=== PATIENT | female | born 1965 | race African-American/Black ===

== ENCOUNTER 2016-12-17 20:52 | Inpatient (IN) ==
[2016-12-17] MEDS ORDERED: FUROSEMIDE 100 MG/10 ML VIAL IV STA (21:24)
[2016-12-17] MEDS ORDERED: NITROGLYCERIN 2% OINT 1 INCH/GM PACK TOP STA (21:24)
--- NOTE | 2016-12-17 21:43 | XRay Report ---
Exam: XR chest 1V portable Date: 12/17/2016 9:24 PM Indication: Shortness of breath Comparison: 01/04/2016 Technical:AP semierect portable Findings: Mild cardiac prominence. External cardiac leads are present. A few reticular nodular densities are present that suggest granuloma changes left mid chest. Lateral marginal osteophytes are present. Impression: 1. Borderline cardiac enlargement 2. Granuloma changes 3. Degenerative spondylosis 4. No acute pathology present PROCEDURE INTERPRETED AT [facility] DEPARTMENT OF RADIOLOGY Final Report Signed by: Dr. Olivier Mcgowan
[2016-12-17 21:50] LABS: ABG Base Excess -4.6 MMOL/L (-2.5-2.5); ABG HCO3 20.6 MMOL/L (20-26); ABG Oxygen Saturation 96.3 % (95-100); ABG PH 7.366 (7.35-7.45); ABG PO2 87.5 MM HG (80-95); ABG TCO2 17.6 MMOL/L (23-27); Allen Test Positive; Pt O2 Delivery Device Room Air
[2016-12-17] MEDS ORDERED: KETOROLAC 30 MG/1 ML VIAL IV STA (22:02)
[2016-12-17] MEDS ORDERED: KETOROLAC 30 MG/1 ML VIAL ONE (22:04)
[2016-12-17] MEDS ORDERED: NITROGLYCERIN 2% OINT 1 INCH/GM PACK TOP ONE (22:04)
[2016-12-17] MEDS ORDERED: FUROSEMIDE 20 MG/2 ML VIAL ONE (22:04)
[2016-12-17 22:07] LABS: Basophils % 0.2 % (0.0-0.8); Eosinophils # 0.1 10*3/uL (0.0-0.87); Eosinophils % 1.6 % (0.00-10.9); Hematocrit 37.8 VOL% (35.7-47.0); Hemoglobin 12.9 GM/DL (12.0-16.0); Immature Granulocytes % 0.2 %; Immature Granulocytes Absolute 0.01 #; Lymphocytes # 1.4 10*3/uL (1.4-4.0); Lymphocytes % 33.5 % (21.3-54.2); Mean Corpuscular HGB Conc 34.1 GM/DL (32-36); Mean Corpuscular Hemoglobin 35 PG (27-34); Mean Corpuscular Volume 103.3 FL (87-102); Mean Platelet Volume 10.2 FL (9.6-12.0); Monocytes # 0.5 10*3/uL (0.11-0.8); Monocytes % 12.3 % (1.7-12.7); Neutrophils # 2.2 10*3/uL (1.4-7.4); Neutrophils % 52.2 % (38.7-73.9); Platelet Count 172 T/CUMM (130-400); Red Blood Count 3.66 MC/CUMM (3.8-5.5); Red Cell Distribution Width 12.6 % (9.3-17.3); White Blood Count 4.3 T/CUMM (4-12)
[2016-12-17 22:16] LABS: PT Patient Result 10.1 SECS
--- NOTE | 2016-12-17 22:31 | Emergency Department Note ---
ICisco Sierra, am scribing for, and in the presence of, Isael Higgins MD 21:46. IRonaldo Robert M, MD, personally performed the services described in this documentation, ascribed by Leila Peck in my presence, and it is both accurate and complete . Arrival - Arrival Chief Complaint: Shortness of Breath Stated Complaint: chest pain bad cough ED Nursing Triage Note: C/O Nonproductive cough, "fluid build up in my chest". Onset Yesterday. SOB with exertion/laying down. EKG performed at time of triage Mode of Arrival: Ambulatory Limitations: No Limitations Source: Patient Time Seen by Provider: 12/17/16 21:23 - History of Present Illness HPI Narrative: Pt is a 51 y/o female that came to the ED with c/o chest pain that began yesterday. Pt has associated sxs of cough with flem, body aches, and leg pains but denies leg swelling. Pt states the cough has been going on for about 3 days and she thinks sxs may be sinuses but the chest pain concerned her. Pt reports she thinks she might have fluid build up. Pt's PCP is Dr. Beth. No other complaints/pain in ED. Onset (ago): day(s) Consistency: constant Severity: mild Severity scale (1-10): 2 Quality: sharp Date of Last Menstrual Period: PM Allergies/Adverse Reactions: Allergies Allergy/AdvReac Type Severity Reaction Status Date / Time No Known Allergies Allergy Verified 12/17/16 21:13 Home Medications: Home Medications Medication Instructions Recorded Confirmed Type Citalopram [CeleXA] 20 mg PO DAILY 01/06/16 01/06/16 History HYDROcodone/ACETAMIN 10-325 [[place] 1 tablet PO Q8HR PRN 01/06/16 01/06/16 History 10-325] Pravastatin [Pravachol] 20 mg PO BEDTIME 01/06/16 01/06/16 History ALPRAZolam [Xanax] 0.25 mg PO Q8H PRN #60 tablet 01/07/16 Rx Albuterol Neb [Proventil Neb] 2.5 mg RESP [place] Q6H PRN #30 neb 01/07/16 Rx Amoxicillin/Clav Tab [Augmentin 875 mg PO BID #10 tablet 01/07/16 Rx Tab] Nebulizer [Aeroneb Go Nebulizer] 1 each [facility] DIRECTED #1 each 01/07/16 Rx Zolpidem Tartrate [Ambien] 10 mg PO BEDTIME PRN #30 tablet 01/07/16 Rx predniSONE TAB [PredniSONE] 40 mg PO DAILY #12 tablet 01/07/16 Rx Aspirin Chew Tab 81 mg PO DAILY #90 tablet 01/09/16 Rx Carvedilol [Coreg] 6.25 mg PO BID #60 tablet 01/09/16 Rx Spironolactone [Aldactone] 25 mg PO DAILY #30 tablet 01/09/16 Rx Valsartan 40 mg PO DAILY #30 tablet 01/09/16 Rx Review of System - Review of System 12 point system: reviewed and no additional remarkable complaints except as stated - Review of System Constitutional: Present: other (body aches). Absent: chills, fever Respiratory: Present: cough (cough with flem) Cardiovascular: Present: chest pain Gastrointestinal: Absent: abdominal pain, nausea, vomiting Musculoskeletal: Present: leg pain. Absent: arm pain, back pain, neck pain Skin: Absent: rash Neurological: Absent: headache Psychiatric: Absent: anxiety Medical,Surgical,& Family Hx - Medical History Cardio: History of: Hypertension Reproductive: History of: Breast Cancer - Social History Smoking Status: Smoker, status unknown Frequency of Alcohol Use: None Type of Drug Use: None Exam Vital Signs: Vital Signs Temperature 97.3 F L 12/17/16 21:43 Pulse Rate 92 H 12/17/16 21:43 Respiratory Rate 18 12/17/16 21:43 Blood Pressure 134/92 12/17/16 21:43 O2 Sat by Pulse Oximetry 94 L 12/17/16 21:13 - General General appearance: alert, in no apparent distress - Head Head exam: Present: atraumatic, normocephalic - Eye Eye exam: Present: PERRL, EOMI - ENT ENT exam: Present: mucous membranes moist. Absent: mucous membranes dry - Neck Neck exam: Present: full ROM. Absent: tenderness - Chest Chest inspection: Present: symmetric chest wall rise. Absent: tenderness - Respiratory Respiratory exam: Present: rales (rales in both bases), rhonchi - Cardiovascular Cardiovascular exam: Present: regular rate, normal rhythm, normal heart sounds - Abdominal Exam Abdominal exam: Present: soft. Absent: tenderness - Extremities Exam Extremities exam: Present: full ROM. Absent: tenderness - Back Exam Back exam: Present: full ROM. Absent: tenderness - Neurological Exam Neurological exam: Present: alert, oriented X3, CN II-XII intact. Absent: motor sensory deficit - Psychiatric Psychiatric exam: Present: normal affect, normal mood - Skin Skin exam: Present: warm, dry Course - Consultations Consultation #1: Dr. Ty Patel will evaluate and admit the patient. Time: 00:41 Results - Labs CBC & BMP: 12/17/16 21:30 12/17/16 21:30 Lab Results: I have reviewed the patients labs Labs: Lab Results WBC 4.3 T/CUMM (4-12) 12/17/16 21:30 RBC 3.66 MC/CUMM (3.8-5.5) L 12/17/16 21:30 Hgb 12.9 GM/DL (12.0-16.0) 12/17/16 21:30 Hct 37.8 VOL% (35.7-47.0) 12/17/16 21:30 MCV 103.3 FL (87-102) H 12/17/16 21:30 MCH 35 PG (27-34) H 12/17/16 21:30 MCHC 34.1 GM/DL (32-36) 12/17/16 21:30 RDW 12.6 % (9.3-17.3) 12/17/16 21:30 Plt Count 172 T/CUMM (130-400) 12/17/16 21:30 MPV 10.2 FL (9.6-12.0) 12/17/16 21:30 Neut % (Auto) 52.2 % (38.7-73.9) 12/17/16 21:30 Lymph % (Auto) 33.5 % (21.3-54.2) 12/17/16 21:30 [place] % (Auto) 12.3 % (1.7-12.7) 12/17/16 21:30 Eos % (Auto) 1.6 % (0.00-10.9) 12/17/16 21:30 Baso % (Auto) 0.2 % (0.0-0.8) 12/17/16 21:30 Neut # (Auto) 2.2 10*3/uL (1.4-7.4) 12/17/16 21:30 Lymph # (Auto) 1.4 10*3/uL (1.4-4.0) 12/17/16 21:30 Schuyler # (Auto) 0.5 10*3/uL (0.11-0.8) 12/17/16 21:30 Eos # (Auto) 0.1 10*3/uL (0.0-0.87) 12/17/16 21:30 Baso # (Auto) 0.0 10*3/uL (0.0-0.2) 12/17/16 21:30 Immature Gran % 0.2 % 12/17/16 21:30 Nucleated RBC % 0.0 /100WBC 12/17/16 21:30 Immature Gran # 0.01 # 12/17/16 21:30 Nucleated RBCs # 0.00 10*3/uL 12/17/16 21:30 INR 1.0 12/17/16 21:30 PT Patient/Control Mix 10.1 SECS 12/17/16 21:30 Sodium 139 MMOL/L (136-145) 12/17/16 21:30 Potassium 3.4 MMOL/L (3.5-5.1) L 12/17/16 21:30 Chloride 106 MMOL/L (98-107) 12/17/16 21:30 Carbon Dioxide 22 MMOL/L (21-32) 12/17/16 21:30 Anion Gap 14.4 MMOL/L (5.0-15.0) 12/17/16 21:30 BUN 8 MG/DL (7-18) 12/17/16 21:30 Creatinine 0.60 MG/DL (0.55-1.02) 12/17/16 21:30 GFR Calculation 128 ML/MIN 12/17/16:30 BUN/Creatinine Ratio 13.00 RATIO (6.00-20.00) 12/17/16 21: Glucose 90 MG/DL (74-106) 12/17/16 21:30 Calculated Osmolality 274.5 MOS/KG (273-304) 12/17/16 21:30 Calcium 8.7 MG/DL (8.5-10.1) 12/17/16 21:30 Magnesium 2.1 MG/DL (1.8-2.4) 12/17/16 21:30 Total Bilirubin 0.50 MG/DL (0.2-1.0) 12/17/16 21:30 AST 24 U/L (0-37) 12/17/16 21:30 ALT 27 U/L (13-56) 12/17/16 21:30 Alkaline Phosphatase 93 U/L (45-117) 12/17/16 21:30 Troponin I < 0.015 NG/ML (0.00-0.045) 12/17/16 21:30 B-Natriuretic Peptide 317 PG/ML (2-100) H 12/17/16 21:30 Total Protein 7.2 G/DL (6.4-8.3) 12/17/16 21: Albumin 3.8 G/DL (3.4-5.0) 12/17/16 21:30 Globulin 3.4 G/DL (2.3-3.5) 12/17/16 21:30 Albumin/Globulin Ratio 1.1 RATIO (1.1-2.2) 12/17/16 21:30 Urine Color Colorless (Yellow) 12/17/16 21:30 Urine Appearance Clear (Clear) 12/17/16 21:30 Urine pH 5.0 (4.5-8.0) 12/17/16 21:30 Ur Specific [place] 1.002 (1.001-1.035) 12/17/16 21:30 Urine Protein Negative MG/DL 12/17/16 21:30 Urine Glucose (UA) Negative mg/dL (Negative) 12/17/16 21:30 Urine Ketones Negative mg/dL (Negative) 12/17/16 21:30 Urine Blood Negative mg/dL (Negative) 12/17/16 21:30 Urine Nitrate Negative (Negative) 12/17/16 21:30 Urine Bilirubin Negative mg/dL (Negative) 12/17/16 21:30 Urine Urobilinogen < 2.0 EU/DL (0.2-1.0) H 12/17/16 21:30 Urine Leukocytes Negative Zuly/ul (Negative) 12/17/16 21:30 Urine WBC <1 /HPF (0-6) 12/17/16 21:30 Urine Mucus Occasional /LPF (Occasional) 12/17/16 21:30 Ur Culture Indicated? Not indicated 12/17/16 21:30 ABG pH 7.366 (7.35-7.45) 12/17/16 21:24 ABG pCO2 35.0 MM HG (35-48) 12/17/16 21:24 ABG pO2 87.5 MM HG (80-95) 12/17/16 21:24 ABG HCO3 20.6 MMOL/L (20-26) 12/17/16 21:24 ABG Total CO2 17.6 MMOL/L (23-27) L 12/17/16 21:24 ABG O2 Saturation 96.3 % (95-100) 12/17/16 21:24 ABG Base Excess -4.6 MMOL/L (-2.5-2.5) L 12/17/16 21:24 FiO2 21.00 PERCENT (0-100) 12/17/16 21:24 Digoxin 0.10 NG/ML (0.90-2.00) L 12/17/16 21:30 - EKG EKG results: interpreted by ERMD, WNL, sinus rhythm - Diagnostic Findings Procedure: Chest x-ray: report reviewed by me Disposition Clinical Impression: CHF (congestive heart failure), Breast cancer, Dyspnea on exertion Case discussed with: patient, patient's family Disposition: Still a Patient Condition: Stable Time of Disposition: 00:40
[2016-12-17 22:32] LABS: Alanine Aminotransferase 27 U/L (13-56); Albumin 3.8 G/DL (3.4-5.0); Alkaline Phosphatase 93 U/L (45-117); Aspartate Amino Transferase 24 U/L (0-37); Blood Urea Nitrogen 8 MG/DL (7-18); Calcium 8.7 MG/DL (8.5-10.1); Glucose 90 MG/DL (74-106); Magnesium 2.1 MG/DL (1.8-2.4); Osmolality,Calculated 274.5 MOS/KG (273-304); Potassium 3.4 MMOL/L (3.5-5.1); Sodium 139 MMOL/L (136-145); Total Protein 7.2 G/DL (6.4-8.3); Troponin I Only < 0.015 NG/ML (0.00-0.045)
[2016-12-17 23:09] LABS: Apearance,Urine CLEAR (Clear); Bilirubin,Urine Negative (Negative); Blood, Urine Negative (Negative); Glucose,Urine (UA) Negative (Negative); Ketones,Urine Negative (Negative); Mucus,Urine Occasional /LPF (Occasional); Nitrite,Urine Negative (Negative); Protein,Urine Negative; Urine Color Colorless (Yellow); Urine Specific Gravity 1.002 (1.001-1.035); Urine Urobilinogen < 2.0 EU/DL (0.2-1.0); WBC,Urine <1 /HPF (0-6)
[2016-12-18] MEDS ORDERED: ALPRAZolam 0.25 MG TABLET PO PRN (01:49)
[2016-12-18] MEDS ORDERED: ALBUTEROL 2.5 MG/3 ML NEB RESP TX PRN (01:49)
[2016-12-18] MEDS ORDERED: ACETAMINOPHEN 325 MG TABLET PO PRN (02:08)
[2016-12-18] MEDS ORDERED: BISACODYL 5 MG TABLET PO PRN (02:08)
[2016-12-18] MEDS ORDERED: MORPHINE 2 MG/1 ML SYRINGE IV PRN (02:08)
[2016-12-18] MEDS ORDERED: ONDANSETRON 4 MG/2 ML VIAL IV PRN (02:08)
--- NOTE | 2016-12-18 02:16 | Hospitalist History & Physical ---
Assessment and Plan - Time spent with patient Time spent discussing smoking cessation with patient: 3 to 10 minutes (1) Acute on chronic combined systolic and diastolic congestive heart failure Status: Acute Current Visit: Yes (2) Hypertension Status: Acute Current Visit: Yes (3) Smoker Status: Acute Current Visit: Yes (4) History of breast cancer Status: Acute Assessment and plan: Plan: Admit for IV diuresis, supportive care with duo nebs breathing treatment. EF is 25% Continue remainder of CHF medications May consider repeat chest x-ray in the next 24 hours Current Visit: Yes History of Present Illness Chief complaint: Worsening shortness of breath 3 days History of present illness: Ms. Soto is a 51 year old female with chronic systolic CHF, EF 25%, history of breast cancer status post left mastectomy, hypertension, smoker, who is here with progressively worsening shortness of breath starting Thursday. She denies fever or chills, she is coughing up some whitish phlegm occasionally. She denies chest pain except after a long coughing episode. She denies leg swelling. She reports compliance with her medications, during my exam blood pressure is slightly elevated 150s over 90s. Her symptoms are constant. Home Medications Medication Instructions Recorded Confirmed Type Citalopram [CeleXA] 20 mg PO DAILY 01/06/16 12/18/16 History HYDROcodone/ACETAMIN 10-325 [[place] 1 tablet PO Q8HR PRN 01/06/16 01/06/16 History 10-325] Pravastatin [Pravachol] 20 mg PO BEDTIME 01/06/16 01/06/16 History ALPRAZolam [Xanax] 0.25 mg PO Q8H PRN #60 tablet 01/07/16 Rx Albuterol Neb [Proventil Neb] 2.5 mg RESP [place] Q6H PRN #30 neb 01/07/16 Rx Amoxicillin/Clav Tab [Augmentin 875 mg PO BID #10 tablet 01/07/16 Rx Tab] Nebulizer [Aeroneb Go Nebulizer] 1 each [facility] [place] #1 each 01/07/16 Rx Zolpidem Tartrate [Ambien] 10 mg PO BEDTIME PRN #30 tablet 01/07/16 Rx predniSONE TAB [PredniSONE] 40 mg PO DAILY #12 tablet 01/07/16 Rx Aspirin Chew Tab 81 mg PO DAILY #90 tablet 01/09/16 Rx Carvedilol [Coreg] 6.25 mg PO BID #60 tablet 01/09/16 12/18/16 Rx Spironolactone [Aldactone] 25 mg PO DAILY #30 tablet 01/09/16 12/18/16 Rx Valsartan 40 mg PO DAILY #30 tablet 01/09/16 Rx Allergies Allergy/AdvReac Type Severity Reaction Status Date / Time No Known Allergies Allergy Verified 12/17/16 21:13 Medical,Surgical,& Family Hx - Medical History Cardio: History of: CHF (Chronic systolic and diastolic CHF, EF 25% December 2015) , Hypertension No history of: CAD Endocrine: No history of: Diabetes Mellitus (NIDDM) Respiratory: No history of: COPD Reproductive: History of: Breast Cancer (Status post left mastectomy) - Surgical History Reproductive Surgeries: Surgical HX of;: Breast Surgery - Family History Family History: Reports;: Family Hypertension - Social History Smoking Status: Current every day smoker Have you smoked in the last 12 months: Yes Time spent discussing smoking cessation with patient: 3 to 10 minutes Frequency of Alcohol Use: None Type of Drug Use: None Marital Status: Lives With:: Spouse Functional capacity: independent ambulation Review of systems: A 12 point review of systems is negative except as specified in the HPI Exam - Constitutional Vitals: Period Temp Pulse Resp BP Sys/[place] Pulse Ox Last 24 Hr 97.3 F-97.3 F 92-98 18-18 134-139/92-96 94 Exam: EXAM: CONSTITUTIONAL: non toxic, NAD HEENT: NC, AT, OP benign, NINA, EOMI CV: RRR no m/g/r RESP: Scant rales bilaterally GI: abd soft, NT, ND, +bowel sounds INTEGUMENTARY: no lesions or rash, prior left mastectomy EXTREMITIES: no c/c/e NEURO: no focal deficits PSYCH: unremarkable, A/O x3 Results - Labs CBC & BMP: 12/18/16 04:22 12/17/16 21:30 Lab Results: I have reviewed the past 24 hour labs - EKG EKG shows: sinus rhythm - Diagnostic Findings Procedure: Chest x-ray: image reviewed by me, report reviewed by me
[2016-12-18] MEDS ORDERED: cloNIDine 0.1 MG TABLET ONE (02:39)
[2016-12-18] MEDS ORDERED: cloNIDine 0.1 MG TABLET PO STA (02:43)
[2016-12-18] MEDS: ZALEPLON 5 MG CAPSULE PO PRN ×2 (03:52→22:17)
[2016-12-18 04:49] LABS: Eosinophils # 0.1 10*3/uL (0.0-0.87); Eosinophils % 2.2 % (0.00-10.9); Hematocrit 36.6 VOL% (35.7-47.0); Hemoglobin 12.6 GM/DL (12.0-16.0); Immature Granulocytes % 0.3 %; Immature Granulocytes Absolute 0.01 #; Lymphocytes # 0.8 10*3/uL (1.4-4.0); Lymphocytes % 25.5 % (21.3-54.2); Mean Corpuscular HGB Conc 34.4 GM/DL (32-36); Mean Corpuscular Hemoglobin 35 PG (27-34); Mean Corpuscular Volume 102.2 FL (87-102); Mean Platelet Volume 10.4 FL (9.6-12.0); Monocytes # 0.4 10*3/uL (0.11-0.8); Monocytes % 11.2 % (1.7-12.7); Neutrophils % 60.8 % (38.7-73.9); Platelet Count 168 T/CUMM (130-400); Red Blood Count 3.58 MC/CUMM (3.8-5.5); Red Cell Distribution Width 12.6 % (9.3-17.3); White Blood Count 3.2 T/CUMM (4-12)
[2016-12-18 05:23] LABS: Albumin 3.6 G/DL (3.4-5.0); Bilirubin,Total 0.8 MG/DL (0.2-1.0); Calcium 8.5 MG/DL (8.5-10.1); Osmolality,Calculated 276.5 MOS/KG (273-304); Potassium 3.7 MMOL/L (3.5-5.1); Total Protein 6.7 G/DL (6.4-8.3)
--- NOTE | 2016-12-18 07:11 | XRay Report ---
History short of breath Comparison 12/17/2016 The heart is mildly enlarged No congestive failure or confluent infiltrates seen Impression: Mild cardiomegaly without acute infiltrate PROCEDURE INTERPRETED AT [facility] DEPARTMENT OF RADIOLOGY Final Report Signed by: Dr. Maria Isabel De Dios
--- NOTE | 2016-12-18 08:32 | EKG Report ---
Stationary ECG Study [facility] ER Test Date: 12/17/2016 9:18:39 PM Pat Name: LENKA GAMEZ Department: Room: 285 Gender: F Teletypist: Melissa : 1965 Requested by: Isael Higgins Order Number: [id number] Reading MD: EFFIE BHATTI Intervals [place] Rate: 93 P: 71 NE: 167 QRS: 25 QRSD: 94 T: 3 QT: 370 QTc: 421 Interpretive Statements SINUS RHYTHM POSSIBLE LEFT ATRIAL ENLARGEMENT SEPTAL INFARCT, AGE UNDETERMINED MODERATE ST DEPRESSION Electronically Signed On 12-22-16 08:17:03 CDT by EFFIE BHATTI [email or web address]
[2016-12-18] MEDS: ENOXAPARIN 40 MG/0.4 ML SYRINGE SUBCUT SCH (09:18)
[2016-12-18] MEDS: FUROSEMIDE 40 MG/4 ML VIAL IV SCH ×2 (09:18→15:34)
[2016-12-18] MEDS: PANTOPRAZOLE 40 MG TABLET PO SCH (09:19)
[2016-12-18] MEDS: CITALOPRAM 20 MG TABLET PO SCH (09:19)
[2016-12-18] MEDS: VALSARTAN 80 MG TABLET PO SCH (09:19)
[2016-12-18] MEDS: CARVEDILOL 6.25 MG TABLET PO SCH ×2 (09:19→22:17)
[2016-12-18] MEDS: predniSONE 20 MG TABLET PO SCH (09:19)
[2016-12-18] MEDS: AMOXICILLIN/CLAV 875 MG TABLET PO SCH ×2 (09:19→22:17)
[2016-12-18] MEDS: SPIRONOLACTONE 25 MG TABLET PO SCH (09:19)
[2016-12-18] MEDS: ASPIRIN CHEW 81 MG TABLET PO SCH (09:19)
[2016-12-18] MEDS: guaiFENesin 200 MG/10 ML UDCUP PO PRN (15:33)
[2016-12-18] MEDS ORDERED: PRAVASTATIN 20 MG TABLET PO SCH (21:00)
[2016-12-19] MEDS: guaiFENesin 200 MG/10 ML UDCUP PO PRN ×2 (00:51→09:00)
[2016-12-19 08:11] VITALS: BP 120/79
--- NOTE | 2016-12-19 08:33 | Discharge Summary ---
Hospital Course - Hospital Course Hospital Course: Ms. Soto is a 51 year old female with chronic systolic CHF, EF 25%, history of breast cancer status post left mastectomy, hypertension, smoker, who presented with progressively worsening shortness of breath for 4 days. She denies fever or chills, she was coughing up some whitish phlegm occasionally. She denied chest pain except after a long coughing episode. She denies leg swelling. She reports compliance with her medications, blood pressure is slightly elevated 150s over 90s. \ She was admitted to the hospitalist service with acute on chronic combined systolic and diastolic congestive heart failure. She was started on IV lasix. CXR did not show an acute process. Patient has done well, with no complications during hospitalization. She has now reached maximum benefit of inpatient stay and will be discharged home. - Time spent with patient Time with patient DS: Less than 30 minutes Diagnosis - Discharge Diagnosis (1) Acute on chronic combined systolic and diastolic congestive heart failure Status: Resolved (2) Hypertension Status: Chronic Discharge Plan - Discharge Data Condition at Discharge: Stable Discharge Diet: heart healthy Activity: resume usual activities as tolerated Hygiene: no restrictions Weight Bearing at Discharge: weight bear as tolerated Driving: no restrictions Contact your physician if you experience:: fever over 101, Shortness of breath - Discharge Medications Continue Pravastatin [Pravachol] 20 mg PO BEDTIME Citalopram [CeleXA] 20 mg PO DAILY HYDROcodone/ACETAMIN 10-325 [[place] 10-325] 1 tablet PO Q8HR PRN PRN Reason: Pain Moderate To Severe (4-10) ALPRAZolam [Xanax] 0.25 mg PO Q8H PRN #60 tablet PRN Reason: Anxiety Albuterol Neb [Proventil Neb] 2.5 mg RESP [place] Q6H PRN #30 neb PRN Reason: Shortness Of Breath/Wheezing Amoxicillin/Clav Tab [Augmentin Tab] 875 mg PO BID #10 tablet Nebulizer [Aeroneb Go Nebulizer] 1 each [facility] DIRECTED #1 each predniSONE TAB [PredniSONE] 40 mg PO DAILY #12 tablet Aspirin Chew Tab 81 mg PO DAILY #90 tablet Carvedilol [Coreg] 6.25 mg PO BID #60 tablet Spironolactone [Aldactone] 25 mg PO DAILY #30 tablet Valsartan 40 mg PO DAILY #30 tablet Zolpidem Tartrate [Ambien] 10 mg PO BEDTIME PRN #30 tablet PRN Reason: Insomnia - Follow Up or Referral Follow Up: Eliu Pascal CFNP [Advanced Practice Nurse] - 1 Month (hospital f/u) - Forms/Instructions Exam - Constitutional Vitals: Period Temp Pulse Resp BP Sys/[place] Pulse Ox Last 24 Hr 97.5 F-98.3 F 73-95 17-20 98-120/64-79 92-98 General appearance: normal weight - Head Head exam: Present: normocephalic, atraumatic - Eye Eye exam: Present: EOMI Pupils: Present: NINA - ENT ENT exam: Present: normal exam - Neck Neck exam: Present: normal inspection - Respiratory Respiratory exam: Present: clear to auscultation bilaterally. Absent: rhonchi, wheezes - Cardiovascular Cardiovascular exam: Present: regular rate and rhythm - GI/Abdominal GI/Abdominal exam: Present: normal bowel sounds, soft. Absent: tenderness, rebound - Extremities Exam Extremities exam: Present: normal inspection - Back Exam Back exam: Present: normal inspection - Neurological Exam Neurological exam: Present: alert, oriented X3 - Psychiatric Psychiatric exam: Present: normal affect, normal mood - Skin Skin exam: Present: warm, intact DS: Provider Date of admission: 12/18/16 02:08 Primary care physician: . No PCP Attending physician on admission: Hilario Chakraborty MD Discharging clinician: Hilario Chakraborty MD
[2016-12-19] MEDS: AMOXICILLIN/CLAV 875 MG TABLET PO SCH (09:00)
[2016-12-19] MEDS: CITALOPRAM 20 MG TABLET PO SCH (09:01)
[2016-12-19] MEDS: ASPIRIN CHEW 81 MG TABLET PO SCH (09:01)
[2016-12-19] MEDS: SPIRONOLACTONE 25 MG TABLET PO SCH (09:01)
[2016-12-19] MEDS: VALSARTAN 80 MG TABLET PO SCH (09:01)
[2016-12-19] MEDS: CARVEDILOL 6.25 MG TABLET PO SCH (09:01)
[2016-12-19] MEDS: predniSONE 20 MG TABLET PO SCH (09:01)
[2016-12-19] MEDS: ENOXAPARIN 40 MG/0.4 ML SYRINGE SUBCUT SCH (09:02)
[2016-12-19] MEDS: PANTOPRAZOLE 40 MG TABLET PO SCH (09:02)
[2016-12-19] MEDS: FUROSEMIDE 40 MG/4 ML VIAL IV SCH (09:02)
== END 2016-12-19 10:47 | disposition home or self-care (01) | DRG 293 ==
LOC: N.ED 20:52 → N.EDINP 12-18 02:08 → N.TELEN 12-18 02:36
PROVIDERS: ADMIT Internal Medicine; ATTEND Internal Medicine

== ENCOUNTER 2017-12-14 09:23 | Inpatient (IN) ==
[2017-12-14] MEDS ORDERED: FUROSEMIDE 100 MG/10 ML VIAL IV STA (10:31)
[2017-12-14] MEDS ORDERED: ALBUTEROL/IPRATROPIUM 3 ML NEB RESP TX STA (10:31)
[2017-12-14] MEDS ORDERED: methylPREDNISolone SOD SUC 125 MG/2 ML VIAL IV STA (10:31)
[2017-12-14] MEDS ORDERED: ONDANSETRON 4 MG/2 ML VIAL IV STA (10:31)
[2017-12-14] MEDS ORDERED: MORPHINE 2 MG/1 ML SYRINGE IV STA (10:31)
[2017-12-14 10:44] LABS: Basophils % 0.2 % (0.0-0.8); Eosinophils # 0.1 10*3/uL (0.0-0.87); Eosinophils % 0.9 % (0.00-10.9); Hematocrit 36.9 VOL% (35.7-47.0); Hemoglobin 12.7 GM/DL (12.0-16.0); Immature Granulocytes % 0.5 %; Immature Granulocytes Absolute 0.03 #; Lymphocytes # 1.4 10*3/uL (1.4-4.0); Lymphocytes % 23.6 % (21.3-54.2); Mean Corpuscular HGB Conc 34.4 GM/DL (32-36); Mean Corpuscular Hemoglobin 35 PG (27-34); Mean Corpuscular Volume 100.8 FL (87-102); Mean Platelet Volume 10.9 FL (9.6-12.0); Monocytes # 0.5 10*3/uL (0.11-0.8); Neutrophils # 3.8 10*3/uL (1.4-7.4); Neutrophils % 65.8 % (38.7-73.9); Platelet Count 228 T/CUMM (130-400); Red Blood Count 3.66 MC/CUMM (3.8-5.5); Red Cell Distribution Width 14.1 % (9.3-17.3); White Blood Count 5.8 T/CUMM (4-12)
[2017-12-14] MEDS ORDERED: FUROSEMIDE 40 MG/4 ML VIAL ONE (10:47)
[2017-12-14] MEDS ORDERED: ONDANSETRON 4 MG/2 ML VIAL ONE (10:48)
[2017-12-14] MEDS ORDERED: FUROSEMIDE 20 MG/2 ML VIAL ONE (10:48)
[2017-12-14] MEDS ORDERED: methylPREDNISolone SOD SUC 125 MG/2 ML VIAL ONE (10:48)
[2017-12-14] MEDS ORDERED: MORPHINE 4 MG/1 ML VIAL ONE (10:48)
[2017-12-14 10:51] LABS: INR 1.1; PT Patient Result 11.1 SECS
[2017-12-14 11:00] LABS: Alanine Aminotransferase 37 U/L (13-56); Albumin 3.5 G/DL (3.4-5.0); Alkaline Phosphatase 104 U/L (45-117); Aspartate Amino Transferase 39 U/L (0-37); Blood Urea Nitrogen 9 MG/DL (7-18); Calcium 8.6 MG/DL (8.5-10.1); Glucose 102 MG/DL (74-106); Osmolality,Calculated 275.5 MOS/KG (273-304); Potassium 4.6 MMOL/L (3.5-5.1); Sodium 139 MMOL/L (136-145); Total Protein 7.5 G/DL (6.4-8.3); Troponin I Only < 0.015 NG/ML (0.00-0.045)
[2017-12-14] MEDS ORDERED: guaiFENesin/DM ER 600-30 MG TABLET PO PRN (12:25)
[2017-12-14] MEDS ORDERED: ONDANSETRON 4 MG/2 ML VIAL IV PRN (12:25)
[2017-12-14] MEDS ORDERED: MORPHINE 4 MG/1 ML VIAL IV PRN (12:25)
[2017-12-14] MEDS ORDERED: diphenhydrAMINE CAP 25 MG CAPSULE PO PRN (12:25)
[2017-12-14] MEDS ORDERED: ACETAMINOPHEN 325 MG TABLET PO PRN (12:25)
[2017-12-14] MEDS ORDERED: NICOTINE 21 MG/24 HR PATCH TRANSDERM PRN (12:25)
[2017-12-14] MEDS ORDERED: DOCUSATE SODIUM 100 MG CAPSULE PO PRN (12:25)
[2017-12-14] MEDS ORDERED: ALPRAZolam 0.25 MG TABLET PO PRN (12:32)
[2017-12-14] MEDS ORDERED: ALBUTEROL 2.5 MG/3 ML NEB RESP TX PRN (12:32)
[2017-12-14] MEDS: LOSARTAN 25 MG TABLET PO SCH (13:26)
[2017-12-14] MEDS: PREGABALIN 75 MG CAPSULE PO SCH ×2 (13:26→20:52)
[2017-12-14] MEDS: ENOXAPARIN 40 MG/0.4 ML SYRINGE SUBCUT SCH (13:26)
[2017-12-14] MEDS: METOPROLOL TARTRATE 25 MG TABLET PO SCH (13:26)
[2017-12-14] MEDS: PANTOPRAZOLE 40 MG TABLET PO SCH (13:26)
[2017-12-14] MEDS: ASPIRIN CHEW 81 MG TABLET PO SCH (13:27)
[2017-12-14] MEDS: SERTRALINE 50 MG TABLET PO SCH (13:27)
[2017-12-14] MEDS: ALBUTEROL/IPRATROPIUM 3 ML NEB RESP TX SCH ×2 (13:50→19:14)
[2017-12-14] MEDS: FUROSEMIDE 40 MG/4 ML VIAL IV SCH (15:59)
[2017-12-14] MEDS ORDERED: AMITRIPTYLINE 50 MG TABLET PO SCH (21:00)
[2017-12-14 21:21] LABS: Apearance,Urine CLEAR (Clear); Bilirubin,Urine Negative (Negative); Blood, Urine Negative (Negative); Glucose,Urine (UA) Negative (Negative); Hyaline Casts,Urine 1 /LPF (0-3); Ketones,Urine Negative (Negative); Nitrite,Urine Negative (Negative); Protein,Urine Negative; RBC,Urine <1 /HPF (0-4); Urine Color Straw (Yellow); Urine Specific Gravity 1.005 (1.001-1.035); Urine Urobilinogen < 2.0 EU/DL (0.2-1.0); WBC,Urine <1 /HPF (0-6)
[2017-12-15] MEDS: ALBUTEROL/IPRATROPIUM 3 ML NEB RESP TX SCH ×3 (01:24→13:56)
[2017-12-15 01:40] LABS: Barbiturates Screen,Urine Negative (Negative); Benzodiazepines Screen,Urine Negative (Negative); Cannabinoid Screen,Urine Negative (Negative); Opiate Screen,Urine Positive (Negative); Phencyclidine Screen,Urine Negative (Negative)
[2017-12-15 04:58] LABS: Basophils % 0.1 % (0.0-0.8); Hematocrit 38.5 VOL% (35.7-47.0); Hemoglobin 13.4 GM/DL (12.0-16.0); Immature Granulocytes % 0.3 %; Immature Granulocytes Absolute 0.03 #; Lymphocytes % 8.9 % (21.3-54.2); Mean Corpuscular HGB Conc 34.8 GM/DL (32-36); Mean Corpuscular Hemoglobin 34 PG (27-34); Mean Corpuscular Volume 98.5 FL (87-102); Mean Platelet Volume 10.2 FL (9.6-12.0); Monocytes # 0.8 10*3/uL (0.11-0.8); Monocytes % 7.1 % (1.7-12.7); Neutrophils # 9.2 10*3/uL (1.4-7.4); Neutrophils % 83.6 % (38.7-73.9); Platelet Count 223 T/CUMM (130-400); Red Blood Count 3.91 MC/CUMM (3.8-5.5); Red Cell Distribution Width 13.7 % (9.3-17.3)
[2017-12-15 05:38] LABS: Calcium 8.4 MG/DL (8.5-10.1); Osmolality,Calculated 285.3 MOS/KG (273-304); Potassium 3.6 MMOL/L (3.5-5.1); Risk Ratio 4.62; Thyroid Stimulating Hormone 0.263 uIU/ml (0.358-3.74)
[2017-12-15] MEDS: PANTOPRAZOLE 40 MG TABLET PO SCH (09:34)
[2017-12-15] MEDS: PREGABALIN 75 MG CAPSULE PO SCH (09:34)
[2017-12-15] MEDS: FUROSEMIDE 40 MG/4 ML VIAL IV SCH (09:34)
[2017-12-15] MEDS: LOSARTAN 25 MG TABLET PO SCH (09:35)
[2017-12-15] MEDS: METOPROLOL TARTRATE 25 MG TABLET PO SCH (09:35)
[2017-12-15] MEDS: ASPIRIN CHEW 81 MG TABLET PO SCH (09:35)
[2017-12-15] MEDS: SERTRALINE 50 MG TABLET PO SCH (09:35)
[2017-12-15] MEDS: ENOXAPARIN 40 MG/0.4 ML SYRINGE SUBCUT SCH (12:09)
[2017-12-15 12:33] VITALS: BP 101/67
[2017-12-16] MEDS ORDERED: FUROSEMIDE 40 MG TABLET PO SCH (09:00)
== END 2017-12-15 15:36 | disposition home or self-care (01) | DRG 292 ==
LOC: N.ED 09:23 → SUATTDRO 11:32 → N.EDINP 11:32 → N.TELEN 13:00
PROVIDERS: ADMIT Internal Medicine; ATTEND Internal Medicine

== ENCOUNTER 2018-09-03 22:23 | Inpatient (IN) ==
[2018-09-03] MEDS ORDERED: FUROSEMIDE 100 MG/10 ML VIAL IV STA (23:22)
[2018-09-03] MEDS ORDERED: ALBUTEROL/IPRATROPIUM 3 ML NEB RESP TX STA (23:22)
[2018-09-04 00:03] LABS: Basophils % 0.4 % (0.0-0.8); Eosinophils # 0.1 10*3/uL (0.0-0.87); Eosinophils % 1.4 % (0.00-10.9); Hematocrit 38.4 VOL% (35.7-47.0); Hemoglobin 12.7 GM/DL (12.0-16.0); Immature Granulocytes % 0.4 %; Immature Granulocytes Absolute 0.02 #; Lymphocytes # 1.9 10*3/uL (1.4-4.0); Lymphocytes % 33.2 % (21.3-54.2); Mean Corpuscular HGB Conc 33.1 GM/DL (32-36); Mean Corpuscular Hemoglobin 28 PG (27-34); Mean Corpuscular Volume 85.7 FL (87-102); Mean Platelet Volume 10.1 FL (9.6-12.0); Monocytes # 0.6 10*3/uL (0.11-0.8); Monocytes % 10.5 % (1.7-12.7); NRBC # 0.03 10*3/uL; Neutrophils # 3.1 10*3/uL (1.4-7.4); Neutrophils % 54.1 % (38.7-73.9); Platelet Count 257 T/CUMM (130-400); Red Blood Count 4.48 MC/CUMM (3.8-5.5); Red Cell Distribution Width 20.3 % (9.3-17.3); White Blood Count 5.7 T/CUMM (4-12)
[2018-09-04 00:18] LABS: INR 1.3; PT Patient Result 13.9 SECS; Partial Thromboplastin Time 24.4 SECS (0-40)
[2018-09-04 00:24] LABS: Alanine Aminotransferase 44 U/L (13-56); Albumin 3.3 G/DL (3.4-5.0); Alkaline Phosphatase 167 U/L (45-117); Aspartate Amino Transferase 62 U/L (0-37); Blood Urea Nitrogen 26 MG/DL (7-18); Calcium 8.9 MG/DL (8.5-10.1); Glucose 95 MG/DL (74-106); Osmolality,Calculated 268.5 MOS/KG (273-304); Potassium 4.3 MMOL/L (3.5-5.1); Sodium 132 MMOL/L (136-145); Total Protein 8.3 G/DL (6.4-8.3); Troponin I < 0.015 NG/ML (0.00-0.045)
[2018-09-04 00:26] LABS: Band Neutrophils 1 % (0-10); Lymphocytes 26 % (20-55); Segmented Neutrophils 63 % (50-85); Total Cells Counted 100
[2018-09-04 00:27] LABS: Anisocytosis 1+; Hypochromasia 1+; Target Cells 1+
[2018-09-04 00:28] LABS: Platelet Estimate Adequate
[2018-09-04 01:08] LABS: Apearance,Urine CLEAR (Clear); Bilirubin,Urine Negative (Negative); Blood, Urine Negative (Negative); Glucose,Urine (UA) Negative (Negative); Hyaline Casts,Urine 8 /LPF (0-3); Ketones,Urine Negative (Negative); Mucus,Urine Occasional /LPF (Occasional); Nitrite,Urine Negative (Negative); Protein,Urine 30 MG/DL; RBC,Urine <1 /HPF (0-4); Squamous Epithelial Cell,Urine Occasional /HPF (0-10); Urine Color Yellow (Yellow); Urine Urobilinogen < 2.0 EU/DL (0.2-1.0); WBC,Urine 2 /HPF (0-6)
[2018-09-04 01:16] LABS: Barbiturates Screen,Urine Negative (Negative); Benzodiazepines Screen,Urine Negative (Negative); Cannabinoid Screen,Urine Negative (Negative); Opiate Screen,Urine Positive (Negative); Phencyclidine Screen,Urine Negative (Negative)
[2018-09-04] MEDS ORDERED: ONDANSETRON 4 MG/2 ML VIAL IV PRN (01:58)
[2018-09-04] MEDS ORDERED: DOCUSATE SODIUM 100 MG CAPSULE PO PRN (01:58)
[2018-09-04 06:54] LABS: Basophils % 0.2 % (0.0-0.8); Eosinophils # 0.1 10*3/uL (0.0-0.87); Eosinophils % 1.5 % (0.00-10.9); Hematocrit 33.7 VOL% (35.7-47.0); Immature Granulocytes % 0.2 %; Immature Granulocytes Absolute 0.01 #; Lymphocytes # 1.5 10*3/uL (1.4-4.0); Lymphocytes % 37.6 % (21.3-54.2); Mean Corpuscular HGB Conc 32.6 GM/DL (32-36); Mean Corpuscular Hemoglobin 28 PG (27-34); Mean Corpuscular Volume 85.8 FL (87-102); Mean Platelet Volume 10.7 FL (9.6-12.0); Monocytes # 0.5 10*3/uL (0.11-0.8); Neutrophils % 48.5 % (38.7-73.9); Platelet Count 259 T/CUMM (130-400); Red Blood Count 3.93 MC/CUMM (3.8-5.5); White Blood Count 4.1 T/CUMM (4-12)
[2018-09-04 07:12] LABS: Calcium 8.6 MG/DL (8.5-10.1); Osmolality,Calculated 275.8 MOS/KG (273-304); Potassium 2.8 MMOL/L (3.5-5.1)
[2018-09-04] MEDS: FUROSEMIDE 40 MG/4 ML VIAL IV SCH ×2 (08:43→16:09)
[2018-09-04] MEDS: ENOXAPARIN 40 MG/0.4 ML SYRINGE SUBCUT SCH (08:43)
[2018-09-04] MEDS ORDERED: POTASSIUM CHLORIDE 20 MEQ TABLET PO ONE ×2 (09:00→16:00)
[2018-09-04] MEDS ORDERED: POTASSIUM CHLORIDE 20 MEQ TABLET PO STA (09:01)
[2018-09-04] MEDS: SPIRONOLACTONE 25 MG TABLET PO SCH (13:26)
[2018-09-04] MEDS: POTASSIUM CHLORIDE 20 MEQ TABLET PO SCH (20:37)
[2018-09-04] MEDS: SACUBITRIL/VALSARTAN 49-51 MG TABLET PO SCH (20:38)
[2018-09-05 05:13] LABS: Basophils % 0.3 % (0.0-0.8); Eosinophils # 0.1 10*3/uL (0.0-0.87); Eosinophils % 1.4 % (0.00-10.9); Hematocrit 35.9 VOL% (35.7-47.0); Hemoglobin 11.6 GM/DL (12.0-16.0); Immature Granulocytes % 0.2 %; Immature Granulocytes Absolute 0.01 #; Lymphocytes # 2.2 10*3/uL (1.4-4.0); Lymphocytes % 37.8 % (21.3-54.2); Mean Corpuscular HGB Conc 32.3 GM/DL (32-36); Mean Corpuscular Hemoglobin 28 PG (27-34); Mean Corpuscular Volume 85.9 FL (87-102); Mean Platelet Volume 10.2 FL (9.6-12.0); Monocytes # 0.7 10*3/uL (0.11-0.8); Monocytes % 11.7 % (1.7-12.7); Neutrophils # 2.9 10*3/uL (1.4-7.4); Neutrophils % 48.6 % (38.7-73.9); Platelet Count 272 T/CUMM (130-400); Red Blood Count 4.18 MC/CUMM (3.8-5.5); Red Cell Distribution Width 20.2 % (9.3-17.3); White Blood Count 5.9 T/CUMM (4-12)
[2018-09-05 05:43] LABS: Calcium 8.3 MG/DL (8.5-10.1); Osmolality,Calculated 280.5 MOS/KG (273-304); Potassium 4.2 MMOL/L (3.5-5.1)
[2018-09-05] MEDS: SACUBITRIL/VALSARTAN 49-51 MG TABLET PO SCH ×2 (08:18→21:39)
[2018-09-05] MEDS: SPIRONOLACTONE 25 MG TABLET PO SCH (08:19)
[2018-09-05] MEDS: POTASSIUM CHLORIDE 20 MEQ TABLET PO SCH ×2 (08:19→21:39)
[2018-09-05] MEDS: FUROSEMIDE 40 MG/4 ML VIAL IV SCH ×2 (08:20→16:39)
[2018-09-05] MEDS: ENOXAPARIN 40 MG/0.4 ML SYRINGE SUBCUT SCH (08:24)
[2018-09-05] MEDS: CARVEDILOL 3.125 MG TABLET PO SCH ×2 (12:20→16:39)
[2018-09-06] MEDS: SACUBITRIL/VALSARTAN 49-51 MG TABLET PO SCH ×2 (08:47→21:25)
[2018-09-06] MEDS: POTASSIUM CHLORIDE 20 MEQ TABLET PO SCH ×2 (08:49→21:25)
[2018-09-06] MEDS: SPIRONOLACTONE 25 MG TABLET PO SCH (08:50)
[2018-09-06] MEDS: FUROSEMIDE 40 MG/4 ML VIAL IV SCH (08:50)
[2018-09-06] MEDS: CARVEDILOL 3.125 MG TABLET PO SCH ×2 (08:50→16:41)
[2018-09-06] MEDS: ENOXAPARIN 40 MG/0.4 ML SYRINGE SUBCUT SCH (08:51)
[2018-09-06] MEDS: BENZONATATE 100 MG CAPSULE PO SCH ×2 (10:22→21:25)
[2018-09-06] MEDS: FUROSEMIDE 40 MG TABLET PO SCH (15:06)
[2018-09-07 05:23] LABS: Basophils % 0.6 % (0.0-0.8); Eosinophils # 0.1 10*3/uL (0.0-0.87); Eosinophils % 1.5 % (0.00-10.9); Hematocrit 38.7 VOL% (35.7-47.0); Hemoglobin 12.2 GM/DL (12.0-16.0); Immature Granulocytes % 0.4 %; Immature Granulocytes Absolute 0.02 #; Lymphocytes # 2.4 10*3/uL (1.4-4.0); Lymphocytes % 46.2 % (21.3-54.2); Mean Corpuscular HGB Conc 31.5 GM/DL (32-36); Mean Corpuscular Hemoglobin 28 PG (27-34); Mean Corpuscular Volume 87.2 FL (87-102); Mean Platelet Volume 10.5 FL (9.6-12.0); Monocytes # 0.6 10*3/uL (0.11-0.8); Monocytes % 10.6 % (1.7-12.7); NRBC # 0.03 10*3/uL; Neutrophils # 2.1 10*3/uL (1.4-7.4); Neutrophils % 40.7 % (38.7-73.9); Platelet Count 315 T/CUMM (130-400); Red Blood Count 4.44 MC/CUMM (3.8-5.5); Red Cell Distribution Width 20.9 % (9.3-17.3); White Blood Count 5.3 T/CUMM (4-12)
[2018-09-07 06:04] LABS: Osmolality,Calculated 272.1 MOS/KG (273-304); Potassium 5.6 MMOL/L (3.5-5.1)
[2018-09-07 08:58] VITALS: BP 129/96
[2018-09-07] MEDS ORDERED: PANTOPRAZOLE 40 MG TABLET PO SCH (09:00)
[2018-09-07] MEDS: FUROSEMIDE 40 MG TABLET PO SCH (09:23)
[2018-09-07] MEDS: SACUBITRIL/VALSARTAN 49-51 MG TABLET PO SCH (09:23)
[2018-09-07] MEDS: POTASSIUM CHLORIDE 20 MEQ TABLET PO SCH (09:26)
[2018-09-07] MEDS: SPIRONOLACTONE 25 MG TABLET PO SCH (09:26)
[2018-09-07] MEDS: BENZONATATE 100 MG CAPSULE PO SCH (09:26)
[2018-09-07] MEDS: CARVEDILOL 3.125 MG TABLET PO SCH (09:26)
[2018-09-07] MEDS: ENOXAPARIN 40 MG/0.4 ML SYRINGE SUBCUT SCH (09:27)
== END 2018-09-07 11:44 | disposition home or self-care (01) | DRG 292 ==
LOC: N.ED 22:23 → N.EDINP 22:23 → SUATTDRO 09-04 01:54 → N.2E 09-04 02:20
PROVIDERS: ADMIT Internal Medicine; ATTEND Internal Medicine Infectious Disease

== ENCOUNTER 2018-10-06 19:01 | Inpatient (IN) ==
[2018-10-06] MEDS ORDERED: CLINDAMYCIN INJ 900 MG in PREMIX 1 EACH IV STA (19:34)
[2018-10-06] MEDS ORDERED: FUROSEMIDE 100 MG/10 ML VIAL IV STA (19:34)
[2018-10-06] MEDS ORDERED: ALBUTEROL/IPRATROPIUM 3 ML NEB RESP TX STA (19:34)
[2018-10-06] MEDS ORDERED: ONDANSETRON 4 MG/2 ML VIAL IV STA (19:34)
[2018-10-06] MEDS ORDERED: FUROSEMIDE 40 MG/4 ML VIAL ONE (19:43)
[2018-10-06 20:04] LABS: Basophils % 0.2 % (0.0-0.8); Eosinophils # 0.1 10*3/uL (0.0-0.87); Eosinophils % 1.7 % (0.00-10.9); Hematocrit 40.3 VOL% (35.7-47.0); Hemoglobin 13.1 GM/DL (12.0-16.0); Immature Granulocytes % 0.6 %; Immature Granulocytes Absolute 0.03 #; Lymphocytes # 1.7 10*3/uL (1.4-4.0); Mean Corpuscular HGB Conc 32.5 GM/DL (32-36); Mean Corpuscular Hemoglobin 28 PG (27-34); Mean Corpuscular Volume 86.5 FL (87-102); Mean Platelet Volume 9.5 FL (9.6-12.0); Monocytes # 0.5 10*3/uL (0.11-0.8); Monocytes % 9.7 % (1.7-12.7); Neutrophils # 2.9 10*3/uL (1.4-7.4); Neutrophils % 54.8 % (38.7-73.9); Platelet Count 272 T/CUMM (130-400); Red Blood Count 4.66 MC/CUMM (3.8-5.5); Red Cell Distribution Width 22.9 % (9.3-17.3); White Blood Count 5.3 T/CUMM (4-12)
[2018-10-06 20:17] LABS: INR 1.1; PT Patient Result 11.7 SECS; Partial Thromboplastin Time 26.4 SECS (0-40)
[2018-10-06 20:43] LABS: Alanine Aminotransferase 30 U/L (13-56); Albumin 2.9 G/DL (3.4-5.0); Alkaline Phosphatase 189 U/L (45-117); Aspartate Amino Transferase 38 U/L (0-37); Blood Urea Nitrogen 11 MG/DL (7-18); Calcium 8.6 MG/DL (8.5-10.1); Glucose 90 MG/DL (74-106); Potassium 3.3 MMOL/L (3.5-5.1); Sodium 136 MMOL/L (136-145); Troponin I < 0.015 NG/ML (0.00-0.045)
[2018-10-06] MEDS ORDERED: POTASSIUM BICARB EFFERVESCENT 25 MEQ TABLET PO ONE (20:46)
[2018-10-06 20:59] LABS: Apearance,Urine CLEAR (Clear); Bacteria,Urine Occasional /HPF (Few); Bilirubin,Urine Negative (Negative); Blood, Urine Negative (Negative); Glucose,Urine (UA) Negative (Negative); Ketones,Urine Negative (Negative); Nitrite,Urine Negative (Negative); Protein,Urine Negative; RBC,Urine 2 /HPF (0-4); Urine Color Straw (Yellow); Urine Specific Gravity 1.003 (1.001-1.035); Urine Urobilinogen < 2.0 EU/DL (0.2-1.0); WBC,Urine <1 /HPF (0-6)
[2018-10-06 20:59] LABS: Target Cells Few
[2018-10-06 21:00] LABS: Hypochromasia Slight; Platelet Estimate Adequate
[2018-10-06 21:01] LABS: Ovalocytes Few
[2018-10-06 21:04] LABS: Barbiturates Screen,Urine Negative (Negative); Benzodiazepines Screen,Urine Negative (Negative); Cannabinoid Screen,Urine Negative (Negative); Opiate Screen,Urine Positive (Negative); Phencyclidine Screen,Urine Negative (Negative)
[2018-10-06] MEDS ORDERED: BISACODYL 5 MG TABLET PO PRN (22:09)
[2018-10-06] MEDS ORDERED: diphenhydrAMINE CAP 25 MG CAPSULE PO PRN (22:09)
[2018-10-06] MEDS ORDERED: hydrALAZINE 20 MG/1 ML VIAL IV PRN (22:09)
[2018-10-06] MEDS ORDERED: MORPHINE 4 MG/1 ML VIAL IV PRN (22:09)
[2018-10-06] MEDS ORDERED: NICOTINE 21 MG/24 HR PATCH TRANSDERM PRN (22:09)
[2018-10-06] MEDS ORDERED: MAGNESIUM SULF RIDER 4 GM in PREMIX 1 EACH IV PRN (22:09)
[2018-10-06] MEDS ORDERED: ACETAMINOPHEN 325 MG TABLET PO PRN (22:09)
[2018-10-06] MEDS ORDERED: guaiFENesin/DM ER 600-30 MG TABLET PO PRN (22:09)
[2018-10-06] MEDS ORDERED: ONDANSETRON 4 MG/2 ML VIAL IV PRN (22:09)
[2018-10-06] MEDS ORDERED: MAGNESIUM SULF RIDER 2 GM in PREMIX 1 EACH IV PRN (22:09)
[2018-10-06] MEDS ORDERED: guaiFENesin/CODEINE 5 ML LIQUID PO PRN (23:04)
[2018-10-06 23:08] LABS: Risk Ratio 3.96; VLDL CHOLESTEROL 42.6 MG/DL
[2018-10-06] MEDS: ALBUTEROL/IPRATROPIUM 3 ML NEB RESP TX SCH (23:32)
[2018-10-06 23:57] LABS: Albumin 3.1 G/DL (3.4-5.0); Bilirubin,Direct 0.51 MG/DL (0.0-0.20); Bilirubin,Indirect 0.3 MG/DL (0.0-1.0); Bilirubin,Total 0.8 MG/DL (0.2-1.0)
[2018-10-07] MEDS: POTASSIUM CHLORIDE 20 MEQ TABLET PO PRN ×3 (00:45→06:24)
[2018-10-07 03:17] LABS: Hepatitis A Ab IgM Quant 0.14 Index; Hepatitis A Ab IgM Result Negative (Negative); Hepatitis B Core IgM Quant 0.13 Index; Hepatitis B Core IgM Result Negative (Negative); Hepatitis B Surface Ag Quant < 0.10 Index; Hepatitis B Surface Ag Result Negative (Negative); Hepatitis C Virus Ab Quant 0.08 Index; Hepatitis C Virus Ab Result Negative (Negative)
[2018-10-07] MEDS: CLINDAMYCIN INJ 600 MG in PREMIX 1 EACH IV SCH ×2 (03:41→11:44)
[2018-10-07] MEDS: ALBUTEROL/IPRATROPIUM 3 ML NEB RESP TX SCH ×6 (04:17→23:53)
[2018-10-07 05:56] LABS: Albumin 2.7 G/DL (3.4-5.0); Bilirubin,Total 1.1 MG/DL (0.2-1.0); Calcium 8.6 MG/DL (8.5-10.1); Osmolality,Calculated 269.1 MOS/KG (273-304); Potassium 4.2 MMOL/L (3.5-5.1); Total Protein 7.2 G/DL (6.4-8.3)
[2018-10-07] MEDS: PANTOPRAZOLE 40 MG TABLET PO SCH (10:00)
[2018-10-07] MEDS: FUROSEMIDE 40 MG/4 ML VIAL IV SCH ×2 (10:00→16:13)
[2018-10-07] MEDS ORDERED: ALPRAZolam 0.25 MG TABLET PO PRN (15:08)
[2018-10-07] MEDS ORDERED: ZALEPLON 5 MG CAPSULE PO PRN (15:08)
[2018-10-07] MEDS ORDERED: BENZONATATE 100 MG CAPSULE PO PRN (15:08)
[2018-10-07] MEDS ORDERED: GABAPENTIN 300 MG CAPSULE PO PRN (15:08)
[2018-10-07] MEDS: CARVEDILOL 3.125 MG TABLET PO SCH (16:12)
[2018-10-07] MEDS: SKIN HEALING OINT (AQUAPHOR) 50 GM TUBE TOP SCH (16:12)
[2018-10-07] MEDS: CLOTRIMAZOLE/BETAMETHASONE CREAM 15 GM TUBE TOP SCH ×2 (16:12→20:39)
[2018-10-07] MEDS: SPIRONOLACTONE 25 MG TABLET PO SCH (16:12)
[2018-10-07] MEDS ORDERED: SACUBITRIL/VALSARTAN 49-51 MG TABLET PO SCH (21:00)
[2018-10-08] MEDS: ALBUTEROL/IPRATROPIUM 3 ML NEB RESP TX SCH ×5 (03:05→19:40)
[2018-10-08 04:55] LABS: Basophils % 0.2 % (0.0-0.8); Eosinophils % 2.1 % (0.00-10.9); Hematocrit 36.5 VOL% (35.7-47.0); Hemoglobin 11.7 GM/DL (12.0-16.0); Immature Granulocytes % 0.2 %; Lymphocytes % 41.1 % (21.3-54.2); Mean Corpuscular HGB Conc 32.1 GM/DL (32-36); Mean Corpuscular Hemoglobin 28 PG (27-34); Mean Corpuscular Volume 87.7 FL (87-102); Mean Platelet Volume 9.3 FL (9.6-12.0); Neutrophils % 42.4 % (38.7-73.9); Platelet Count 231 T/CUMM (130-400); Red Blood Count 4.16 MC/CUMM (3.8-5.5); Red Cell Distribution Width 22.3 % (9.3-17.3); White Blood Count 4.7 T/CUMM (4-12)
[2018-10-08 04:56] LABS: Eosinophils # 0.1 10*3/uL (0.0-0.87); Immature Granulocytes Absolute 0.01 #; Lymphocytes # 1.9 10*3/uL (1.4-4.0); Monocytes # 0.7 10*3/uL (0.11-0.8); NRBC # 0.02 10*3/uL
[2018-10-08 05:16] LABS: Calcium 8.4 MG/DL (8.5-10.1); Osmolality,Calculated 272.8 MOS/KG (273-304)
[2018-10-08 05:22] LABS: Hypochromasia 1+; Platelet Estimate Adequate
[2018-10-08] MEDS: CARVEDILOL 3.125 MG TABLET PO SCH ×2 (09:02→17:20)
[2018-10-08] MEDS: SERTRALINE 50 MG TABLET PO SCH (09:02)
[2018-10-08] MEDS: FUROSEMIDE 40 MG/4 ML VIAL IV SCH ×2 (09:02→17:20)
[2018-10-08] MEDS: PANTOPRAZOLE 40 MG TABLET PO SCH (09:02)
[2018-10-08] MEDS: CLOTRIMAZOLE/BETAMETHASONE CREAM 15 GM TUBE TOP SCH ×2 (09:02→21:08)
[2018-10-08] MEDS: ASPIRIN CHEW 81 MG TABLET PO SCH (09:02)
[2018-10-08] MEDS: SPIRONOLACTONE 25 MG TABLET PO SCH (09:02)
[2018-10-08] MEDS: SKIN HEALING OINT (AQUAPHOR) 50 GM TUBE TOP SCH (09:03)
[2018-10-08] MEDS ORDERED: cefTRIAXone 1,000 MG in SYRINGE 1 EACH IV SCH (11:00)
[2018-10-08] MEDS: SACUBITRIL/VALSARTAN 49-51 MG TABLET PO SCH ×2 (12:06→20:46)
[2018-10-08] MEDS: ENOXAPARIN 40 MG/0.4 ML SYRINGE SUBCUT SCH (12:08)
[2018-10-08] MEDS ORDERED: VANCOMYCIN INJ 1,500 MG in SODIUM CHLORIDE 0.9% 500 ML IV ONE (13:00)
[2018-10-08] MEDS ORDERED: cefTRIAXone 1,000 MG in SYRINGE 1 EACH IV ONE (13:30)
[2018-10-09] MEDS: ALBUTEROL/IPRATROPIUM 3 ML NEB RESP TX SCH ×4 (00:10→12:01)
[2018-10-09] MEDS ORDERED: VANCOMYCIN INJ 1,000 MG in SODIUM CHLORIDE 0.9% 250 ML IV SCH (01:00)
[2018-10-09 05:46] LABS: Basophils % 0.4 % (0.0-0.8); Eosinophils # 0.2 10*3/uL (0.0-0.87); Eosinophils % 3.3 % (0.00-10.9); Hematocrit 38.6 VOL% (35.7-47.0); Hemoglobin 12.3 GM/DL (12.0-16.0); Immature Granulocytes % 0.2 %; Immature Granulocytes Absolute 0.01 #; Lymphocytes # 1.5 10*3/uL (1.4-4.0); Lymphocytes % 31.4 % (21.3-54.2); Mean Corpuscular HGB Conc 31.9 GM/DL (32-36); Mean Corpuscular Hemoglobin 28 PG (27-34); Mean Corpuscular Volume 87.5 FL (87-102); Mean Platelet Volume 9.6 FL (9.6-12.0); Monocytes # 0.9 10*3/uL (0.11-0.8); Monocytes % 17.4 % (1.7-12.7); Neutrophils # 2.3 10*3/uL (1.4-7.4); Neutrophils % 47.3 % (38.7-73.9); Platelet Count 256 T/CUMM (130-400); Red Blood Count 4.41 MC/CUMM (3.8-5.5); Red Cell Distribution Width 22.5 % (9.3-17.3); White Blood Count 4.9 T/CUMM (4-12)
[2018-10-09 06:03] LABS: Calcium 8.9 MG/DL (8.5-10.1); Osmolality,Calculated 276.7 MOS/KG (273-304); Potassium 3.7 MMOL/L (3.5-5.1)
[2018-10-09 06:25] LABS: Band Neutrophils 2 % (0-10); Eosinophils 1 % (0-10); Lymphocytes 32 % (20-55); Platelet Estimate Normal; Segmented Neutrophils 57 % (50-85); Total Cells Counted 100
[2018-10-09] MEDS: SERTRALINE 50 MG TABLET PO SCH (09:57)
[2018-10-09] MEDS: ASPIRIN CHEW 81 MG TABLET PO SCH (09:58)
[2018-10-09] MEDS: SPIRONOLACTONE 25 MG TABLET PO SCH (09:58)
[2018-10-09] MEDS: CARVEDILOL 3.125 MG TABLET PO SCH (09:58)
[2018-10-09] MEDS: PANTOPRAZOLE 40 MG TABLET PO SCH (09:58)
[2018-10-09] MEDS: SACUBITRIL/VALSARTAN 49-51 MG TABLET PO SCH (09:58)
[2018-10-09] MEDS: ENOXAPARIN 40 MG/0.4 ML SYRINGE SUBCUT SCH (09:59)
[2018-10-09] MEDS: FUROSEMIDE 40 MG/4 ML VIAL IV SCH (09:59)
[2018-10-09] MEDS: CLOTRIMAZOLE/BETAMETHASONE CREAM 15 GM TUBE TOP SCH (10:16)
[2018-10-09] MEDS: SKIN HEALING OINT (AQUAPHOR) 50 GM TUBE TOP SCH (10:16)
[2018-10-09] MEDS ORDERED: cefTRIAXone 2,000 MG in SYRINGE 1 EACH IV SCH (12:00)
[2018-10-09 12:11] VITALS: BP 103/81
[2018-10-09] MEDS ORDERED: ZALEPLON 5 MG CAPSULE PO SCH (21:00)
== END 2018-10-09 12:30 | disposition home or self-care (01) | DRG 292 ==
LOC: N.ED 19:01 → N.EDINP 22:09 → SUPCPDRO 22:09 → N.4E 23:50
PROVIDERS: ADMIT Internal Medicine; ATTEND Internal Medicine

== ENCOUNTER 2018-10-23 12:16 | Observation (INO) ==
[2018-10-23] MEDS ORDERED: FUROSEMIDE 100 MG/10 ML VIAL IV STA (12:39)
[2018-10-23 13:28] LABS: Basophils % 0.1 % (0.0-0.8); Eosinophils # 0.1 10*3/uL (0.0-0.87); Eosinophils % 0.7 % (0.00-10.9); Hematocrit 40.5 VOL% (35.7-47.0); Hemoglobin 13.1 GM/DL (12.0-16.0); Immature Granulocytes % 0.4 %; Immature Granulocytes Absolute 0.03 #; Lymphocytes # 1.8 10*3/uL (1.4-4.0); Lymphocytes % 24.7 % (21.3-54.2); Mean Corpuscular HGB Conc 32.3 GM/DL (32-36); Mean Corpuscular Hemoglobin 29 PG (27-34); Mean Corpuscular Volume 90.8 FL (87-102); Mean Platelet Volume 9.9 FL (9.6-12.0); Monocytes % 13.1 % (1.7-12.7); NRBC # 0.03 10*3/uL; Neutrophils # 4.5 10*3/uL (1.4-7.4); Platelet Count 183 T/CUMM (130-400); Red Blood Count 4.46 MC/CUMM (3.8-5.5); Red Cell Distribution Width 22.6 % (9.3-17.3); White Blood Count 7.4 T/CUMM (4-12)
[2018-10-23 13:49] LABS: Albumin 3.3 G/DL (3.4-5.0); Bilirubin,Total 1.5 MG/DL (0.2-1.0); Calcium 8.6 MG/DL (8.5-10.1); Osmolality,Calculated 260.7 MOS/KG (273-304); Total Protein 8.4 G/DL (6.4-8.3)
[2018-10-23 13:52] LABS: Potassium 6.3 MMOL/L (3.5-5.1)
[2018-10-23] MEDS ORDERED: ALBUTEROL 2.5 MG/3 ML NEB RESP TX STA (14:15)
[2018-10-23 14:23] LABS: Apearance,Urine CLEAR (Clear); Bilirubin,Urine Negative (Negative); Blood, Urine Negative (Negative); Glucose,Urine (UA) Negative (Negative); Ketones,Urine Negative (Negative); Mucus,Urine Occasional /LPF (Occasional); Nitrite,Urine Negative (Negative); Protein,Urine 30 MG/DL; Squamous Epithelial Cell,Urine Occasional /HPF (0-10); Urine Color Straw (Yellow); Urine Specific Gravity 1.005 (1.001-1.035); Urine Urobilinogen < 2.0 EU/DL (0.2-1.0); WBC,Urine <1 /HPF (0-6)
[2018-10-23 14:33] LABS: Barbiturates Screen,Urine Negative (Negative); Benzodiazepines Screen,Urine Negative (Negative); Cannabinoid Screen,Urine Negative (Negative); Opiate Screen,Urine Positive (Negative); Phencyclidine Screen,Urine Negative (Negative)
[2018-10-23] MEDS ORDERED: ZALEPLON 5 MG CAPSULE PO PRN (16:04)
[2018-10-23] MEDS ORDERED: ALBUTEROL 2.5 MG/3 ML NEB RESP TX PRN (16:04)
[2018-10-23] MEDS ORDERED: GABAPENTIN 300 MG CAPSULE PO PRN (16:04)
[2018-10-23] MEDS ORDERED: ONDANSETRON 4 MG/2 ML VIAL IV PRN (16:19)
[2018-10-23] MEDS ORDERED: MAGNESIUM SULF RIDER 2 GM in PREMIX 1 EACH IV PRN (16:21)
[2018-10-23] MEDS ORDERED: MAGNESIUM SULF RIDER 4 GM in PREMIX 1 EACH IV PRN (16:21)
[2018-10-23] MEDS ORDERED: chlordiazePOXIDE 10 MG CAPSULE PO PRN (16:24)
[2018-10-23] MEDS: BENZONATATE 100 MG CAPSULE PO PRN (17:04)
[2018-10-23] MEDS: guaiFENesin/DM ER 600-30 MG TABLET PO PRN (17:05)
[2018-10-23] MEDS ORDERED: INFLUENZA VIRUS VACCINE 0.5 ML SYRINGE IM ONE (17:05)
[2018-10-23] MEDS ORDERED: PNEUMOCOCCAL VACCINE (13 VALENT) 0.5 ML SYRINGE IM ONE (17:05)
[2018-10-23] MEDS: NICOTINE 14 MG/24 HR PATCH TRANSDERM SCH (17:22)
[2018-10-23] MEDS: CARVEDILOL 3.125 MG TABLET PO SCH (17:22)
[2018-10-23] MEDS: ALBUTEROL/IPRATROPIUM 3 ML NEB RESP TX SCH (19:09)
[2018-10-23] MEDS: SACUBITRIL/VALSARTAN 49-51 MG TABLET PO SCH (21:31)
[2018-10-23] MEDS: CLOTRIMAZOLE/BETAMETHASONE CREAM 15 GM TUBE TOP SCH (21:33)
[2018-10-24] MEDS: ALBUTEROL/IPRATROPIUM 3 ML NEB RESP TX SCH ×2 (00:56→07:20)
[2018-10-24 05:13] LABS: Basophils % 0.2 % (0.0-0.8); Eosinophils # 0.1 10*3/uL (0.0-0.87); Eosinophils % 2.4 % (0.00-10.9); Hematocrit 34.3 VOL% (35.7-47.0); Hemoglobin 11.3 GM/DL (12.0-16.0); Immature Granulocytes % 0.3 %; Immature Granulocytes Absolute 0.02 #; Lymphocytes # 0.9 10*3/uL (1.4-4.0); Mean Corpuscular HGB Conc 32.9 GM/DL (32-36); Mean Corpuscular Hemoglobin 29 PG (27-34); Mean Corpuscular Volume 87.9 FL (87-102); Mean Platelet Volume 9.9 FL (9.6-12.0); Monocytes # 0.8 10*3/uL (0.11-0.8); Monocytes % 12.8 % (1.7-12.7); Neutrophils # 4.1 10*3/uL (1.4-7.4); Neutrophils % 69.3 % (38.7-73.9); Platelet Count 165 T/CUMM (130-400); Red Cell Distribution Width 21.6 % (9.3-17.3); White Blood Count 5.9 T/CUMM (4-12)
[2018-10-24 05:22] LABS: Calcium 8.3 MG/DL (8.5-10.1); Osmolality,Calculated 270.8 MOS/KG (273-304); Potassium 3.2 MMOL/L (3.5-5.1)
[2018-10-24] MEDS ORDERED: POTASSIUM CHLORIDE RIDER 10 MEQ in PREMIX 1 EACH IV PRN (05:34)
[2018-10-24] MEDS: POTASSIUM CHLORIDE 20 MEQ TABLET PO PRN ×2 (06:01→09:27)
[2018-10-24] MEDS ORDERED: MAGNESIUM SULF RIDER 4 GM in PREMIX 1 EACH IV PRN (07:23)
[2018-10-24] MEDS ORDERED: MAGNESIUM SULF RIDER 2 GM in PREMIX 1 EACH IV PRN (07:23)
[2018-10-24] MEDS ORDERED: FUROSEMIDE 40 MG/4 ML VIAL IV SCH (08:00)
[2018-10-24 08:14] VITALS: BP 100/64
[2018-10-24] MEDS ORDERED: THIAMINE 100 MG TABLET PO SCH (09:00)
[2018-10-24] MEDS ORDERED: POTASSIUM CHLORIDE 20 MEQ TABLET PO SCH (09:00)
[2018-10-24] MEDS ORDERED: FOLIC ACID 1 MG TABLET PO SCH (09:00)
[2018-10-24] MEDS ORDERED: SERTRALINE 50 MG TABLET PO SCH (09:00)
[2018-10-24] MEDS ORDERED: PANTOPRAZOLE 40 MG TABLET PO SCH (09:00)
[2018-10-24] MEDS ORDERED: SPIRONOLACTONE 25 MG TABLET PO SCH (09:00)
[2018-10-24] MEDS ORDERED: ASPIRIN CHEW 81 MG TABLET PO SCH (09:00)
[2018-10-24] MEDS ORDERED: MULTIVITAMIN (BEROCCA) TABLET PO SCH (09:00)
[2018-10-24] MEDS: SACUBITRIL/VALSARTAN 49-51 MG TABLET PO SCH (09:26)
[2018-10-24] MEDS: guaiFENesin/DM ER 600-30 MG TABLET PO PRN (09:27)
[2018-10-24] MEDS: CARVEDILOL 3.125 MG TABLET PO SCH (09:27)
[2018-10-24] MEDS: BENZONATATE 100 MG CAPSULE PO PRN (09:28)
[2018-10-24] MEDS: NICOTINE 14 MG/24 HR PATCH TRANSDERM SCH (09:29)
[2018-10-24] MEDS: CLOTRIMAZOLE/BETAMETHASONE CREAM 15 GM TUBE TOP SCH (09:32)
[2018-10-24] MEDS ORDERED: ACETAMINOPHEN 500 MG TABLET PO PRN (09:38)
== END 2018-10-24 10:31 | disposition home or self-care (01) ==
LOC: N.ED 12:16 → N.EDINP 15:12 → INTOOBSV 15:12 → N.EDINP 16:40 → N.TELES 16:44
PROVIDERS: ADMIT Internal Medicine Cardiovascular Disease; ATTEND Internal Medicine Cardiovascular Disease

== ENCOUNTER 2020-02-09 04:47 | Inpatient (IN) ==
[2020-02-09] MEDS ORDERED: ALUM/MAG/SIMETH/LIDO VISC 1:1 30 ML BOTTLE PO STA (05:02)
[2020-02-09] MEDS ORDERED: ONDANSETRON 4 MG/2 ML VIAL IV STA ×2 (05:02→07:19)
[2020-02-09] MEDS ORDERED: MORPHINE 4 MG/1 ML VIAL IV STA (05:02)
[2020-02-09 05:20] LABS: Basophils % 0.1 % (0.0-0.8); Hematocrit 44.5 VOL% (35.7-47.0); Hemoglobin 14.9 GM/DL (12.0-16.0); Immature Granulocytes % 0.5 %; Immature Granulocytes Absolute 0.05 #; Lymphocytes # 0.9 10*3/uL (1.4-4.0); Lymphocytes % 8.8 % (21.3-54.2); Mean Corpuscular HGB Conc 33.5 GM/DL (32-36); Mean Corpuscular Volume 102.5 FL (87-102); Mean Platelet Volume 9.9 FL (9.6-12.0); Monocytes % 6.7 % (1.7-12.7); Neutrophils % 83.9 % (38.7-73.9); Platelet Count 188 T/CUMM (130-400); Red Blood Count 4.34 MC/CUMM (3.8-5.5); Red Cell Distribution Width 15.5 % (9.3-17.3); White Blood Count 10.6 T/CUMM (4-12)
[2020-02-09 05:58] LABS: Albumin 3.7 G/DL (3.4-5.0); Bilirubin,Total 1.7 MG/DL (0.2-1.0); Calcium 9.7 MG/DL (8.5-10.1); Osmolality,Calculated 271.1 MOS/KG (273-304); Total Protein 8.9 G/DL (6.4-8.3)
[2020-02-09] MEDS ORDERED: PANTOPRAZOLE 40 MG VIAL IV STA (05:58)
[2020-02-09 06:00] LABS: Apearance,Urine CLEAR (Clear); Bilirubin,Urine Negative (Negative); Blood, Urine Negative (Negative); Glucose,Urine (UA) Negative (Negative); Ketones,Urine Negative (Negative); Nitrite,Urine Negative (Negative); Protein,Urine 100 MG/DL; RBC,Urine 1 /HPF (0-4); Urine Color Yellow (Yellow); Urine Specific Gravity 1.033 (1.001-1.035); WBC,Urine <1 /HPF (0-6)
[2020-02-09] MEDS ORDERED: AMPICILLIN/SULBACTAM 3,000 MG in SODIUM CHLORIDE 0.9% 100 ML IV STA (07:01)
[2020-02-09] MEDS ORDERED: HYDROmorphone 2 MG/1 ML VIAL IV STA (07:19)
[2020-02-09] MEDS ORDERED: ACETAMINOPHEN 325 MG TABLET PO PRN ×2 (09:00→09:11)
[2020-02-09] MEDS ORDERED: BISACODYL 5 MG TABLET PO PRN (09:11)
[2020-02-09] MEDS ORDERED: ALBUTEROL/IPRATROPIUM 3 ML NEB RESP TX PRN (09:11)
[2020-02-09] MEDS ORDERED: PIPERACILLIN/TAZOBACTAM 3,375 MG VIAL IV ONE (10:43)
[2020-02-09] MEDS ORDERED: SODIUM CHLORIDE 0.9% 100 ML IV ONE (10:43)
[2020-02-09] MEDS: PIPERACILLIN/TAZOBACTAM 3,375 MG in SODIUM CHLORIDE 0.9% 100 ML IV SCH ×2 (10:56→17:31)
[2020-02-09] MEDS: DEXTROSE 5% LACTATED RINGERS 1,000 ML IV SCH ×3 (10:56→23:15)
[2020-02-09] MEDS: PANTOPRAZOLE 40 MG TABLET PO SCH (10:56)
[2020-02-09] MEDS ORDERED: INDOMETHACIN SUPP 50 MG SUPP RECTAL ONE (12:42)
[2020-02-09] MEDS: HYDROmorphone 2 MG/1 ML VIAL IV PRN ×2 (16:17→20:26)
[2020-02-09] MEDS: ONDANSETRON 4 MG/2 ML VIAL IV PRN (20:25)
[2020-02-10] MEDS: PIPERACILLIN/TAZOBACTAM 3,375 MG in SODIUM CHLORIDE 0.9% 100 ML IV SCH ×3 (01:23→17:42)
[2020-02-10 04:57] LABS: Basophils % 0.1 % (0.0-0.8); Eosinophils % 0.1 % (0.00-10.9); Hematocrit 40.1 VOL% (35.7-47.0); Hemoglobin 13.5 GM/DL (12.0-16.0); Immature Granulocytes % 0.5 %; Immature Granulocytes Absolute 0.05 #; Lymphocytes # 1.3 10*3/uL (1.4-4.0); Lymphocytes % 12.8 % (21.3-54.2); Mean Corpuscular HGB Conc 33.7 GM/DL (32-36); Mean Corpuscular Volume 102.8 FL (87-102); Mean Platelet Volume 10.5 FL (9.6-12.0); NRBC # 0.02 10*3/uL; Neutrophils % 77.5 % (38.7-73.9); Platelet Count 142 T/CUMM (130-400); Red Cell Distribution Width 15.2 % (9.3-17.3); White Blood Count 10.1 T/CUMM (4-12)
[2020-02-10] MEDS: ONDANSETRON 4 MG/2 ML VIAL IV PRN ×2 (05:28→18:41)
[2020-02-10] MEDS: HYDROmorphone 2 MG/1 ML VIAL IV PRN ×3 (05:29→23:07)
[2020-02-10 05:31] LABS: Bilirubin,Total 2.4 MG/DL (0.2-1.0); Calcium 8.9 MG/DL (8.5-10.1); Osmolality,Calculated 270.1 MOS/KG (273-304); Total Protein 7.6 G/DL (6.4-8.3)
[2020-02-10 06:16] LABS: INR 1.2; PT Patient Result 12.9 SECS (9.8-11.9); Partial Thromboplastin Time 28.7 SECS (23.9-33.8)
[2020-02-10] MEDS ORDERED: INDOMETHACIN SUPP 50 MG SUPP RECTAL ONE (06:33)
[2020-02-10] MEDS ORDERED: fentaNYL 100 MCG/2 ML VIAL ONE (08:13)
[2020-02-10] MEDS ORDERED: GLYCOPYRROLATE 0.4 MG/2 ML VIAL ONE (09:00)
[2020-02-10] MEDS ORDERED: LIDOCAINE 2% 5 ML VIAL ONE (09:00)
[2020-02-10] MEDS ORDERED: ONDANSETRON 4 MG/2 ML VIAL ONE (09:00)
[2020-02-10] MEDS ORDERED: propofoL 200 MG/20 ML VIAL IV ONE (09:00)
[2020-02-10] MEDS ORDERED: ROCURONIUM 100 MG/10 ML VIAL IV ONE (09:00)
[2020-02-10] MEDS ORDERED: NEOSTIGMINE 10 MG/10 ML VIAL ONE (09:00)
[2020-02-10] MEDS ORDERED: SUGAMMADEX 200 MG/2 ML VIAL IV ONE (09:25)
[2020-02-10] MEDS: PANTOPRAZOLE 40 MG TABLET PO SCH (10:20)
[2020-02-10] MEDS: DEXTROSE 5% LACTATED RINGERS 1,000 ML IV SCH ×2 (10:20→17:42)
[2020-02-11] MEDS: DEXTROSE 5% LACTATED RINGERS 1,000 ML IV SCH ×3 (00:29→18:22)
[2020-02-11] MEDS: PIPERACILLIN/TAZOBACTAM 3,375 MG in SODIUM CHLORIDE 0.9% 100 ML IV SCH ×3 (01:01→17:42)
[2020-02-11] MEDS: HYDROmorphone 2 MG/1 ML VIAL IV PRN ×3 (06:25→21:51)
[2020-02-11] MEDS: ONDANSETRON 4 MG/2 ML VIAL IV PRN ×2 (06:26→17:40)
[2020-02-11] MEDS: PANTOPRAZOLE 40 MG VIAL IV SCH ×2 (09:58→21:49)
[2020-02-11] MEDS: SUCRALFATE 1 GM/10 ML UDCUP PO SCH ×3 (11:03→21:49)
[2020-02-12] MEDS: PIPERACILLIN/TAZOBACTAM 3,375 MG in SODIUM CHLORIDE 0.9% 100 ML IV SCH ×3 (01:16→23:06)
[2020-02-12] MEDS: DEXTROSE 5% LACTATED RINGERS 1,000 ML IV SCH ×3 (01:17→18:38)
[2020-02-12 04:56] LABS: Basophils % 0.2 % (0.0-0.8); Eosinophils # 0.1 10*3/uL (0.0-0.87); Eosinophils % 1.5 % (0.00-10.9); Hematocrit 36.9 VOL% (35.7-47.0); Hemoglobin 12.6 GM/DL (12.0-16.0); Immature Granulocytes % 0.2 %; Immature Granulocytes Absolute 0.01 #; Lymphocytes # 1.5 10*3/uL (1.4-4.0); Lymphocytes % 32.3 % (21.3-54.2); Mean Corpuscular HGB Conc 34.1 GM/DL (32-36); Mean Corpuscular Volume 101.1 FL (87-102); Mean Platelet Volume 10.5 FL (9.6-12.0); Monocytes % 12.4 % (1.7-12.7); Neutrophils % 53.4 % (38.7-73.9); Platelet Count 125 T/CUMM (130-400); Red Blood Count 3.65 MC/CUMM (3.8-5.5); Red Cell Distribution Width 14.7 % (9.3-17.3); White Blood Count 4.5 T/CUMM (4-12)
[2020-02-12 05:23] LABS: Hypochromasia 1+; Platelet Estimate Adequate; Polychromasia Few; Target Cells Few
[2020-02-12 05:47] LABS: Albumin 2.8 G/DL (3.4-5.0); Bilirubin,Direct 1.29 MG/DL (0.0-0.20); Bilirubin,Indirect 0.9 MG/DL (0.0-1.0); Bilirubin,Total 2.2 MG/DL (0.2-1.0); Calcium 8.7 MG/DL (8.5-10.1); Total Protein 6.7 G/DL (6.4-8.3)
[2020-02-12 06:37] LABS: Apearance,Urine CLEAR (Clear); Bilirubin,Urine Negative (Negative); Blood, Urine Negative (Negative); Glucose,Urine (UA) Negative (Negative); Ketones,Urine Negative (Negative); Mucus,Urine Occasional /LPF (Occasional); Nitrite,Urine Negative (Negative); Protein,Urine 30 MG/DL; RBC,Urine 1 /HPF (0-4); Squamous Epithelial Cell,Urine Occasional /HPF (0-10); Urine Color Yellow (Yellow); WBC,Urine 3 /HPF (0-6)
[2020-02-12] MEDS: HYDROmorphone 2 MG/1 ML VIAL IV PRN (06:42)
[2020-02-12] MEDS: ONDANSETRON 4 MG/2 ML VIAL IV PRN (06:43)
[2020-02-12 06:54] LABS: Albumin 2.7 G/DL (3.4-5.0); Calcium 8.8 MG/DL (8.5-10.1); Osmolality,Calculated 275.8 MOS/KG (273-304); Total Protein 6.8 G/DL (6.4-8.3)
[2020-02-12] MEDS: PANTOPRAZOLE 40 MG VIAL IV SCH ×2 (09:37→20:46)
[2020-02-12] MEDS: SUCRALFATE 1 GM/10 ML UDCUP PO SCH ×4 (09:37→20:46)
[2020-02-13] MEDS: DEXTROSE 5% LACTATED RINGERS 1,000 ML IV SCH ×3 (03:01→20:24)
[2020-02-13] MEDS: HYDROmorphone 2 MG/1 ML VIAL IV PRN (03:03)
[2020-02-13] MEDS: ONDANSETRON 4 MG/2 ML VIAL IV PRN (03:03)
[2020-02-13] MEDS: PIPERACILLIN/TAZOBACTAM 3,375 MG in SODIUM CHLORIDE 0.9% 100 ML IV SCH ×3 (06:13→23:12)
[2020-02-13 06:25] LABS: Albumin 2.9 G/DL (3.4-5.0); Bilirubin,Total 2.2 MG/DL (0.2-1.0); Calcium 8.9 MG/DL (8.5-10.1); Osmolality,Calculated 275.8 MOS/KG (273-304)
[2020-02-13] MEDS: SUCRALFATE 1 GM/10 ML UDCUP PO SCH ×4 (08:52→20:19)
[2020-02-13] MEDS: PANTOPRAZOLE 40 MG VIAL IV SCH ×2 (08:56→20:20)
[2020-02-13] MEDS ORDERED: diphenhydrAMINE CAP 25 MG CAPSULE PO ONE (21:45)
[2020-02-14] MEDS: DEXTROSE 5% LACTATED RINGERS 1,000 ML IV SCH ×3 (01:00→19:43)
[2020-02-14] MEDS: HYDROmorphone 2 MG/1 ML VIAL IV PRN (03:50)
[2020-02-14 05:20] LABS: Basophils % 0.2 % (0.0-0.8); Eosinophils # 0.1 10*3/uL (0.0-0.87); Eosinophils % 1.4 % (0.00-10.9); Hematocrit 38.1 VOL% (35.7-47.0); Hemoglobin 12.9 GM/DL (12.0-16.0); Immature Granulocytes % 0.2 %; Immature Granulocytes Absolute 0.01 #; Lymphocytes # 1.7 10*3/uL (1.4-4.0); Lymphocytes % 38.7 % (21.3-54.2); Mean Corpuscular HGB Conc 33.9 GM/DL (32-36); Mean Corpuscular Volume 101.1 FL (87-102); Mean Platelet Volume 10.6 FL (9.6-12.0); Monocytes % 15.3 % (1.7-12.7); NRBC # 0.02 10*3/uL; Neutrophils % 44.2 % (38.7-73.9); Platelet Count 146 T/CUMM (130-400); Red Blood Count 3.77 MC/CUMM (3.8-5.5); Red Cell Distribution Width 15.1 % (9.3-17.3); White Blood Count 4.3 T/CUMM (4-12)
[2020-02-14 05:28] LABS: INR 1.3; PT Patient Result 13.7 SECS (9.8-11.9)
[2020-02-14 05:42] LABS: Hypochromasia 1+; Macrocytosis Slight; Platelet Estimate Adequate; Polychromasia Slight
[2020-02-14 05:59] LABS: Albumin 2.9 G/DL (3.4-5.0); Bilirubin,Total 1.6 MG/DL (0.2-1.0); Calcium 8.1 MG/DL (8.5-10.1); Osmolality,Calculated 275.7 MOS/KG (273-304); Total Protein 6.8 G/DL (6.4-8.3)
[2020-02-14] MEDS: POTASSIUM CHLORIDE RIDER 10 MEQ in PREMIX 1 EACH IV SCH ×3 (06:48→19:44)
[2020-02-14] MEDS ORDERED: INDOMETHACIN SUPP 50 MG SUPP RECTAL ONE ×2 (08:00→08:57)
[2020-02-14] MEDS: SUCRALFATE 1 GM/10 ML UDCUP PO SCH ×4 (08:08→21:16)
[2020-02-14] MEDS: LACTATED RINGERS 1,000 ML IV SCH (08:20)
[2020-02-14] MEDS ORDERED: fentaNYL 100 MCG/2 ML VIAL ONE (08:44)
[2020-02-14] MEDS ORDERED: MIDAZOLAM 2 MG/2 ML VIAL ONE (08:46)
[2020-02-14] MEDS ORDERED: SEVOFLURANE 1 UNIT/15 MINUTE INH ONE ×2 (09:00→11:17)
[2020-02-14] MEDS ORDERED: flumazeniL 0.5 MG/5 ML VIAL IV ONE (09:00)
[2020-02-14] MEDS ORDERED: GLYCOPYRROLATE 0.4 MG/2 ML VIAL ONE (09:00)
[2020-02-14] MEDS ORDERED: ROCURONIUM 100 MG/10 ML VIAL IV ONE (09:00)
[2020-02-14] MEDS ORDERED: LIDOCAINE 2% 5 ML VIAL ONE (09:00)
[2020-02-14] MEDS ORDERED: SUCCINYLCHOLINE 200 MG/10 ML VIAL ONE (09:00)
[2020-02-14] MEDS ORDERED: PHENYLEPHRINE 1 MG/10 ML SYRINGE IV ONE (09:00)
[2020-02-14] MEDS ORDERED: ONDANSETRON 4 MG/2 ML VIAL ONE (09:00)
[2020-02-14] MEDS ORDERED: FAMOTIDINE 20 MG/2 ML VIAL IV ONE (09:00)
[2020-02-14] MEDS ORDERED: propofoL 200 MG/20 ML VIAL IV ONE (09:00)
[2020-02-14] MEDS: ONDANSETRON 4 MG/2 ML VIAL IV PRN (12:35)
[2020-02-14] MEDS: PIPERACILLIN/TAZOBACTAM 3,375 MG in SODIUM CHLORIDE 0.9% 100 ML IV SCH ×2 (12:40→21:14)
[2020-02-14] MEDS: PANTOPRAZOLE 40 MG VIAL IV SCH ×2 (21:13→21:17)
[2020-02-15] MEDS: PIPERACILLIN/TAZOBACTAM 3,375 MG in SODIUM CHLORIDE 0.9% 100 ML IV SCH ×2 (03:39→14:00)
[2020-02-15 05:10] LABS: Basophils % 0.2 % (0.0-0.8); Eosinophils # 0.1 10*3/uL (0.0-0.87); Eosinophils % 0.9 % (0.00-10.9); Hematocrit 39.1 VOL% (35.7-47.0); Hemoglobin 12.9 GM/DL (12.0-16.0); Immature Granulocytes % 0.4 %; Immature Granulocytes Absolute 0.02 #; Lymphocytes # 1.5 10*3/uL (1.4-4.0); Lymphocytes % 28.4 % (21.3-54.2); Mean Corpuscular Volume 102.6 FL (87-102); Mean Platelet Volume 10.6 FL (9.6-12.0); Monocytes % 13.5 % (1.7-12.7); NRBC # 0.03 10*3/uL; Neutrophils % 56.6 % (38.7-73.9); Platelet Count 131 T/CUMM (130-400); Red Blood Count 3.81 MC/CUMM (3.8-5.5); Red Cell Distribution Width 15.6 % (9.3-17.3); White Blood Count 5.4 T/CUMM (4-12)
[2020-02-15 05:25] LABS: Albumin 2.9 G/DL (3.4-5.0); Bilirubin,Total 1.7 MG/DL (0.2-1.0); Calcium 8.4 MG/DL (8.5-10.1); Total Protein 7.1 G/DL (6.4-8.3)
[2020-02-15 05:48] LABS: Hypochromasia 1+; Macrocytosis Slight; Platelet Estimate Normal
[2020-02-15] MEDS ORDERED: ceFAZolin 1,000 MG VIAL ONE (08:21)
[2020-02-15] MEDS ORDERED: LIDOCAINE 2% 5 ML VIAL ONE (09:39)
[2020-02-15] MEDS ORDERED: propofoL 200 MG/20 ML VIAL IV ONE (09:39)
[2020-02-15] MEDS ORDERED: SEVOFLURANE 1 UNIT/15 MINUTE INH ONE (09:39)
[2020-02-15] MEDS ORDERED: MIDAZOLAM 2 MG/2 ML VIAL ONE (09:39)
[2020-02-15] MEDS ORDERED: GLYCOPYRROLATE 0.4 MG/2 ML VIAL ONE (09:40)
[2020-02-15] MEDS ORDERED: LIDOCAINE 1%/EPI INJ 20 ML VIAL ONE (09:40)
[2020-02-15] MEDS ORDERED: BUPIVACAINE MPF 0.25% 30 ML VIAL ONE (09:40)
[2020-02-15] MEDS ORDERED: TISSUE ADHESIVE 1 EACH APPLICATOR TOP ONE (09:40)
[2020-02-15] MEDS ORDERED: fentaNYL 100 MCG/2 ML VIAL ONE (09:40)
[2020-02-15] MEDS ORDERED: PHENYLEPHRINE 1 MG/10 ML SYRINGE IV ONE (09:40)
[2020-02-15] MEDS ORDERED: ONDANSETRON 4 MG/2 ML VIAL ONE (09:40)
[2020-02-15] MEDS ORDERED: ePHEDrine 50 MG/ML AMP ONE (09:40)
[2020-02-15] MEDS ORDERED: NEOSTIGMINE 10 MG/10 ML VIAL ONE (09:41)
[2020-02-15] MEDS ORDERED: ROCURONIUM 100 MG/10 ML VIAL IV ONE (09:41)
[2020-02-15] MEDS ORDERED: SUCCINYLCHOLINE 200 MG/10 ML VIAL ONE (09:41)
[2020-02-15] MEDS ORDERED: ONDANSETRON 4 MG/2 ML VIAL IV PRN (10:04)
[2020-02-15] MEDS ORDERED: KETOROLAC 30 MG/1 ML VIAL IV ONE (10:04)
[2020-02-15] MEDS: DEXTROSE 5% LACTATED RINGERS 1,000 ML IV SCH (10:23)
[2020-02-15] MEDS: SUCRALFATE 1 GM/10 ML UDCUP PO SCH ×2 (10:40→14:00)
[2020-02-15] MEDS: LACTATED RINGERS 1,000 ML IV SCH (10:40)
[2020-02-15] MEDS ORDERED: ZALEPLON 5 MG CAPSULE PO PRN (11:59)
[2020-02-15] MEDS ORDERED: CLOTRIMAZOLE/BETAMETHASONE CREAM 15 GM TUBE TOP PRN (11:59)
[2020-02-15] MEDS ORDERED: DICYCLOMINE 20 MG TABLET PO PRN (11:59)
[2020-02-15] MEDS ORDERED: ALBUTEROL 2.5 MG/3 ML NEB RESP TX PRN (11:59)
[2020-02-15] MEDS ORDERED: GABAPENTIN 300 MG CAPSULE PO PRN (11:59)
[2020-02-15] MEDS ORDERED: ONDANSETRON 4 MG TABLET PO PRN (11:59)
[2020-02-15] MEDS ORDERED: IBUPROFEN 400 MG TABLET PO PRN (11:59)
[2020-02-15 14:41] VITALS: BP 123/94
[2020-02-15] MEDS ORDERED: SACUBITRIL/VALSARTAN 49-51 MG TABLET PO SCH (21:00)
[2020-02-15] MEDS ORDERED: carvediloL 6.25 MG TABLET PO SCH (21:00)
[2020-02-16] MEDS ORDERED: FUROSEMIDE 40 MG TABLET PO SCH (09:00)
[2020-02-16] MEDS ORDERED: SPIRONOLACTONE 25 MG TABLET PO SCH (09:00)
[2020-02-16] MEDS ORDERED: SERTRALINE 50 MG TABLET PO SCH (09:00)
[2020-02-16] MEDS ORDERED: MULTIVITAMIN (BEROCCA) TABLET PO SCH (09:00)
[2020-02-16] MEDS ORDERED: ASPIRIN CHEW 81 MG TABLET PO SCH (09:00)
[2020-02-16] MEDS ORDERED: POTASSIUM CHLORIDE 20 MEQ TABLET PO SCH (09:00)
[2020-02-16] MEDS ORDERED: THIAMINE 100 MG TABLET PO SCH (09:00)
[2020-02-16] MEDS ORDERED: PANTOPRAZOLE 40 MG TABLET PO SCH (09:00)
[2020-02-16] MEDS ORDERED: FOLIC ACID 1 MG TABLET PO SCH (09:00)
== END 2020-02-15 14:44 | disposition home or self-care (01) | DRG 417 ==
LOC: EDBD → EDUNIT# → N.ED 04:47 → N.EDINP 09:11 → N.3E 11:48 → N.4E 02-14 09:47
PROVIDERS: ADMIT Student in an Organized Health Care Education/Training Program; ATTEND Student in an Organized Health Care Education/Training Program
PROC: LAPCHOL (2020-02-15 07:53)

== ENCOUNTER 2020-07-26 18:04 | Inpatient (IN) ==
[2020-07-26 19:25] LABS: Basophils % 0.4 % (0.0-0.8); Eosinophils % 0.8 % (0.00-10.9); Hematocrit 38.4 VOL% (35.7-47.0); Hemoglobin 13.2 GM/DL (12.0-16.0); Immature Granulocytes % 0.4 %; Immature Granulocytes Absolute 0.02 #; Lymphocytes # 1.4 10*3/uL (1.4-4.0); Lymphocytes % 27.9 % (21.3-54.2); Mean Corpuscular HGB Conc 34.4 GM/DL (32-36); Mean Corpuscular Volume 103.5 FL (87-102); Mean Platelet Volume 10.3 FL (9.6-12.0); Monocytes % 12.6 % (1.7-12.7); NRBC # 0.05 10*3/uL; Neutrophils % 57.9 % (38.7-73.9); Platelet Count 211 T/CUMM (130-400); Red Blood Count 3.71 MC/CUMM (3.8-5.5); Red Cell Distribution Width 17.5 % (9.3-17.3)
[2020-07-26 19:35] LABS: INR 1.3; PT Patient Result 13.4 SECS (9.8-11.9)
[2020-07-26 19:43] LABS: Albumin 3.3 G/DL (3.4-5.0); Bilirubin,Total 1.2 MG/DL (0.2-1.0); Calcium 9.3 MG/DL (8.5-10.1); Osmolality,Calculated 278.5 MOS/KG (273-304); Total Protein 7.6 G/DL (6.4-8.3)
[2020-07-26 20:19] LABS: Anisocytosis 1+; Eosinophils 1 % (0-10); Hypochromasia Slight; Lymphocytes 27 % (20-55); Nucleated Red Blood Cells 5 (0-5); Polychromasia Few; Segmented Neutrophils 60 % (50-85); Target Cells Few; Total Cells Counted 100
[2020-07-26 20:20] LABS: Platelet Estimate Adequate
[2020-07-26 20:34] LABS: Bilirubin,Urine Negative (Negative); Blood, Urine Negative (Negative); Glucose,Urine (UA) Negative (Negative); Hyaline Casts,Urine 5 /LPF (0-3); Ketones,Urine Negative (Negative); Mucus,Urine Occasional /LPF (Occasional); Nitrite,Urine Negative (Negative); Protein,Urine >=500 MG/DL; RBC,Urine 5 /HPF (0-4); Urine Appearance CLEAR (Clear); Urine Color Amber (Yellow); Urine Specific Gravity 1.018 (1.001-1.035); WBC,Urine 3 /HPF (0-6)
[2020-07-26] MEDS ORDERED: ONDANSETRON 4 MG/2 ML VIAL IV PRN (20:45)
[2020-07-26] MEDS ORDERED: DEXTROSE 50% 25 GM/50 ML VIAL IV PRN (20:45)
[2020-07-26] MEDS ORDERED: NICOTINE 21 MG/24 HR PATCH TRANSDERM PRN (20:45)
[2020-07-26] MEDS ORDERED: hydrALAZINE 20 MG/1 ML VIAL IV PRN (20:45)
[2020-07-26] MEDS ORDERED: GLUCAGON 1 MG VIAL IM PRN (20:45)
[2020-07-26] MEDS ORDERED: ACETAMINOPHEN 325 MG TABLET PO PRN (20:45)
[2020-07-26] MEDS ORDERED: guaiFENesin/DM ER 600-30 MG TABLET PO PRN (20:45)
[2020-07-26] MEDS ORDERED: diphenhydrAMINE CAP 25 MG CAPSULE PO PRN (20:45)
[2020-07-27] MEDS: ALBUTEROL/IPRATROPIUM 3 ML NEB RESP TX SCH ×3 (01:19→13:00)
[2020-07-27] MEDS ORDERED: FUROSEMIDE 20 MG/2 ML VIAL IV ONE (03:58)
[2020-07-27] MEDS: cefTRIAXone 1,000 MG in SYRINGE 1 EACH IV SCH (06:40)
[2020-07-27] MEDS: AZITHROMYCIN INJ 500 MG in SODIUM CHLORIDE 0.9% 250 ML IV SCH (06:41)
[2020-07-27] MEDS: MORPHINE 4 MG/1 ML VIAL IV PRN ×3 (07:47→21:13)
[2020-07-27] MEDS ORDERED: INFLUENZA VIRUS VACCINE 0.5 ML SYRINGE IM ONE (09:00)
[2020-07-27] MEDS: ENOXAPARIN 80 MG/0.8 ML SYRINGE SUBCUT SCH (19:24)
[2020-07-27] MEDS: ACETYLCYSTEINE 600 MG CAPSULE PO SCH (20:00)
[2020-07-28] MEDS: ALBUTEROL/IPRATROPIUM 3 ML NEB RESP TX SCH ×5 (00:19→19:12)
[2020-07-28] MEDS: MORPHINE 4 MG/1 ML VIAL IV PRN (02:41)
[2020-07-28 05:58] LABS: Calcium 8.2 MG/DL (8.5-10.1); Osmolality,Calculated 286.4 MOS/KG (273-304)
[2020-07-28 06:06] LABS: Basophils % 0.5 % (0.0-0.8); Hematocrit 43.4 VOL% (35.7-47.0); Hemoglobin 14.7 GM/DL (12.0-16.0); Immature Granulocytes % 0.4 %; Immature Granulocytes Absolute 0.03 #; Lymphocytes # 0.7 10*3/uL (1.4-4.0); Lymphocytes % 9.3 % (21.3-54.2); Mean Corpuscular HGB Conc 33.9 GM/DL (32-36); Mean Corpuscular Volume 105.6 FL (87-102); NRBC # 0.41 10*3/uL; Neutrophils % 81.8 % (38.7-73.9); Red Blood Count 4.11 MC/CUMM (3.8-5.5); Red Cell Distribution Width 17.4 % (9.3-17.3)
[2020-07-28 06:10] LABS: Platelet Count 71 T/CUMM (130-400)
[2020-07-28] MEDS: cefTRIAXone 1,000 MG in SYRINGE 1 EACH IV SCH (06:27)
[2020-07-28] MEDS: ENOXAPARIN 80 MG/0.8 ML SYRINGE SUBCUT SCH (06:28)
[2020-07-28] MEDS: AZITHROMYCIN INJ 500 MG in SODIUM CHLORIDE 0.9% 250 ML IV SCH (06:29)
[2020-07-28 06:35] LABS: Band Neutrophils 5 % (0-10); Eosinophils 1 % (0-10); Lymphocytes 9 % (20-55); Nucleated Red Blood Cells 10 (0-5); Platelet Estimate Decreased; Segmented Neutrophils 80 % (50-85); Total Cells Counted 100
[2020-07-28 06:36] LABS: Macrocytosis 1+
[2020-07-28] MEDS ORDERED: SODIUM CHLORIDE 0.9% 1,000 ML IV PRN ×5 (07:14→18:57)
[2020-07-28] MEDS ORDERED: VECURONIUM 10 MG VIAL IV ONE (07:25)
[2020-07-28] MEDS ORDERED: LORazepam INJ 40 MG in DEXTROSE 5% 30 ML IV PRN (07:33)
[2020-07-28] MEDS ORDERED: MIDAZOLAM 100 MG in SODIUM CHLORIDE 0.9% 80 ML IV PRN (07:33)
[2020-07-28] MEDS ORDERED: ALBUTEROL 2.5 MG/3 ML NEB RESP TX PRN (07:33)
[2020-07-28] MEDS ORDERED: PANTOPRAZOLE INJ 80 MG in SODIUM CHLORIDE 0.9% 100 ML IV ONE (07:37)
[2020-07-28] MEDS: PHENYLEPHRINE DRIP 40 MG/250 ML PREMIX IV SCH (08:10)
[2020-07-28 08:23] LABS: Basophils % 0.2 % (0.0-0.8); Hematocrit 24.4 VOL% (35.7-47.0); Immature Granulocytes % 0.4 %; Immature Granulocytes Absolute 0.02 #; Lymphocytes # 0.8 10*3/uL (1.4-4.0); Lymphocytes % 14.6 % (21.3-54.2); Mean Corpuscular HGB Conc 32.8 GM/DL (32-36); Mean Platelet Volume 10.3 FL (9.6-12.0); Monocytes % 7.5 % (1.7-12.7); NRBC # 0.32 10*3/uL; Neutrophils % 77.3 % (38.7-73.9); Red Cell Distribution Width 17.8 % (9.3-17.3)
[2020-07-28 08:28] LABS: Platelet Count 35 T/CUMM (130-400); Red Blood Count 2.16 MC/CUMM (3.8-5.5); White Blood Count 5.2 T/CUMM (4-12)
[2020-07-28 08:48] LABS: Band Neutrophils 6 % (0-10); Eosinophils 2 % (0-10); Lymphocytes 9 % (20-55); Macrocytosis 1+; Nucleated Red Blood Cells 7 (0-5); Segmented Neutrophils 82 % (50-85); Total Cells Counted 100
[2020-07-28 08:49] LABS: Platelet Estimate Decreased; Polychromasia Slight
[2020-07-28] MEDS ORDERED: fentaNYL 100 MCG/2 ML VIAL IV PRN (09:02)
[2020-07-28] MEDS ORDERED: fentaNYL INJ 1,250 MCG in SODIUM CHLORIDE 0.9% 225 ML IV PRN (09:02)
[2020-07-28 09:07] LABS: ABG Base Excess -9.3 MMOL/L (-2.5-2.5); ABG HCO3 17.1 MMOL/L (20-26); ABG PCO2 37.1 MM HG (35-48); ABG PH 7.269 (7.35-7.45); ABG TCO2 15.3 MMOL/L (23-27)
[2020-07-28] MEDS ORDERED: CISATRACURIUM 200 MG in SODIUM CHLORIDE 0.9% 180 ML IV PRN (09:09)
[2020-07-28] MEDS ORDERED: CISATRACURIUM 10 MG/5 ML VIAL IV ONE (09:09)
[2020-07-28 09:14] LABS: Alanine Aminotransferase 20 U/L (13-56); Albumin 3.1 G/DL (3.4-5.0); Alkaline Phosphatase 106 U/L (45-117); Aspartate Amino Transferase 17 U/L (0-37); Bilirubin,Total < 0.39 MG/DL (0.2-1.0); Blood Urea Nitrogen 30 MG/DL (7-18); Calcium 9.1 MG/DL (8.5-10.1); Estimated Glom Filtration Rate 61 ML/MIN; Glucose 205 MG/DL (74-106); Osmolality,Calculated 290.4 MOS/KG (273-304); Total Protein 7.7 G/DL (6.4-8.3)
[2020-07-28] MEDS ORDERED: MAGNESIUM SULF RIDER 1 GM in PREMIX 1 EACH IV PRN (09:28)
[2020-07-28] MEDS ORDERED: POTASSIUM CHLORIDE RIDER 20 MEQ in PREMIX 1 EACH IV PRN (09:29)
[2020-07-28 09:37] LABS: CKMB % 1.3 %
[2020-07-28 09:43] LABS: Troponin I 1.17 NG/ML (0.00-0.045)
[2020-07-28] MEDS: DOPamine 800 MG/250 ML PREMIX IV SCH (09:58)
[2020-07-28] MEDS ORDERED: FOSPHENYTOIN 100 MG.PE/2 ML VIAL IV ONE (10:25)
[2020-07-28 10:40] LABS: Basophils % 0.3 % (0.0-0.8); Hematocrit 36.6 VOL% (35.7-47.0); Immature Granulocytes % 0.8 %; Immature Granulocytes Absolute 0.06 #; Lymphocytes # 0.6 10*3/uL (1.4-4.0); Mean Corpuscular Volume 102.2 FL (87-102); Mean Platelet Volume 11.2 FL (9.6-12.0); Monocytes % 5.4 % (1.7-12.7); NRBC # 0.54 10*3/uL; Neutrophils % 85.5 % (38.7-73.9); Red Cell Distribution Width 17.5 % (9.3-17.3)
[2020-07-28 10:41] LABS: Hemoglobin 12.8 GM/DL (12.0-16.0); Red Blood Count 3.58 MC/CUMM (3.8-5.5); White Blood Count 7.9 T/CUMM (4-12)
[2020-07-28 10:42] LABS: Platelet Count 65 T/CUMM (130-400)
[2020-07-28] MEDS ORDERED: FOSPHENYTOIN 500 MG.PE/10 ML VIAL ONE (10:42)
[2020-07-28 10:48] LABS: INR 2.5; PT Patient Result 25.4 SECS (9.8-11.9); Partial Thromboplastin Time 45.1 SECS (23.9-33.8)
[2020-07-28] MEDS ORDERED: FOSPHENYTOIN 1,000 MG.PE in SODIUM CHLORIDE 0.9% 250 ML IV ONE (10:54)
[2020-07-28 11:15] LABS: Band Neutrophils 14 % (0-10); Eosinophils 1 % (0-10); Hypochromasia Slight; Lymphocytes 8 % (20-55); Macrocytosis 1+; Metamyelocytes 1 %; Nucleated Red Blood Cells 8 (0-5); Segmented Neutrophils 71 % (50-85); Total Cells Counted 100
[2020-07-28 11:16] LABS: Platelet Estimate Decreased; Polychromasia Slight; Target Cells Slight
[2020-07-28] MEDS: PANTOPRAZOLE INJ 200 MG in SODIUM CHLORIDE 0.9% 250 ML IV SCH (11:27)
[2020-07-28 13:22] LABS: Basophils % 0.4 % (0.0-0.8); Hematocrit 43.2 VOL% (35.7-47.0); Immature Granulocytes % 0.9 %; Immature Granulocytes Absolute 0.07 #; Lymphocytes # 0.5 10*3/uL (1.4-4.0); Lymphocytes % 6.6 % (21.3-54.2); Mean Corpuscular HGB Conc 34.7 GM/DL (32-36); Mean Corpuscular Volume 97.7 FL (87-102); Mean Platelet Volume 11.4 FL (9.6-12.0); Monocytes % 5.7 % (1.7-12.7); NRBC # 0.46 10*3/uL; Neutrophils % 86.4 % (38.7-73.9); Platelet Count 53 T/CUMM (130-400); Red Blood Count 4.42 MC/CUMM (3.8-5.5); Red Cell Distribution Width 19.1 % (9.3-17.3); White Blood Count 7.6 T/CUMM (4-12)
[2020-07-28 14:18] LABS: Anisocytosis 1+; Band Neutrophils 37 % (0-10); Lymphocytes 7 % (20-55); Macrocytosis 1+; Microcytosis 1+; Nucleated Red Blood Cells 14 (0-5); Platelet Estimate Decreased; Polychromasia 1+; Segmented Neutrophils 54 % (50-85); Total Cells Counted 100
[2020-07-28] MEDS ORDERED: MINERAL OIL/PETROLATUM OPH OINT 3.5 GM TUBE BOTH EYES SCH (15:00)
[2020-07-28 15:53] LABS: ABG Base Excess -3.1 MMOL/L (-2.5-2.5); ABG HCO3 21.9 MMOL/L (20-26); ABG PCO2 27.9 MM HG (35-48); ABG TCO2 16.4 MMOL/L (23-27)
[2020-07-28] MEDS: INSULIN REGULAR 100 UNIT/ML IV SCH ×3 (16:19→22:05)
[2020-07-28] MEDS: NOREPINEPHRINE 8 MG in SODIUM CHLORIDE 0.9% 242 ML IV SCH (16:19)
[2020-07-28] MEDS: ACETYLCYSTEINE 600 MG CAPSULE PO SCH ×2 (16:19→20:45)
[2020-07-28 17:38] LABS: Bilirubin,Urine Negative (Negative); Blood, Urine Large mg/dL (Negative); Glucose,Urine (UA) 50 mg/dL (Negative); Ketones,Urine 5 mg/dL (Negative); Mucus,Urine Occasional /LPF (Occasional); Nitrite,Urine Negative (Negative); Protein,Urine 100 MG/DL; RBC,Urine 972 /HPF (0-4); Squamous Epithelial Cell,Urine Occasional /HPF (0-10); Urine Appearance Slightly Hazy (Clear); Urine Color Amber (Yellow); Urine Specific Gravity 1.019 (1.001-1.035); Urine Urobilinogen < 2.0 EU/DL (0.2-1.0)
[2020-07-28] MEDS: MIDAZOLAM 2 MG/2 ML VIAL IV PRN ×2 (17:50→23:27)
[2020-07-28 18:23] LABS: Basophils % 0.5 % (0.0-0.8); Hematocrit 42.1 VOL% (35.7-47.0); Hemoglobin 14.8 GM/DL (12.0-16.0); Immature Granulocytes % 1.7 %; Immature Granulocytes Absolute 0.11 #; Lymphocytes # 0.7 10*3/uL (1.4-4.0); Lymphocytes % 10.2 % (21.3-54.2); Mean Corpuscular HGB Conc 35.2 GM/DL (32-36); Mean Corpuscular Volume 96.8 FL (87-102); Mean Platelet Volume 10.9 FL (9.6-12.0); Monocytes % 5.4 % (1.7-12.7); NRBC # 0.45 10*3/uL; Neutrophils % 82.2 % (38.7-73.9); Platelet Count 100 T/CUMM (130-400); Red Blood Count 4.35 MC/CUMM (3.8-5.5); Red Cell Distribution Width 19.7 % (9.3-17.3); White Blood Count 6.4 T/CUMM (4-12)
[2020-07-28 19:10] LABS: Band Neutrophils 34 % (0-10); Lymphocytes 10 % (20-55); Macrocytosis 2+; Metamyelocytes 6 %; Microcytosis Slight; Nucleated Red Blood Cells 14 (0-5); Platelet Estimate Adequate; Segmented Neutrophils 49 % (50-85); Total Cells Counted 100
[2020-07-28 19:11] LABS: Anisocytosis 2+; Atypical Lymphocytes Few
[2020-07-28] MEDS ORDERED: PANTOPRAZOLE 40 MG VIAL IV SCH (21:00)
[2020-07-29] MEDS: ALBUTEROL/IPRATROPIUM 3 ML NEB RESP TX SCH ×2 (00:58→07:20)
[2020-07-29 03:13] LABS: ABG Base Excess -0.1 MMOL/L (-2.5-2.5); ABG HCO3 23.8 MMOL/L (20-26); ABG Oxygen Saturation 99.3 % (95-100); ABG PCO2 36.5 MM HG (35-48); ABG PH 7.432 (7.35-7.45); ABG TCO2 24.9 MMOL/L (23-27)
[2020-07-29 03:27] LABS: Basophils # 0.1 10*3/uL (0.0-0.2); Basophils % 1.3 % (0.0-0.8); Hematocrit 40.2 VOL% (35.7-47.0); Hemoglobin 14.1 GM/DL (12.0-16.0); Immature Granulocytes % 2.2 %; Immature Granulocytes Absolute 0.12 #; Lymphocytes # 0.6 10*3/uL (1.4-4.0); Lymphocytes % 10.9 % (21.3-54.2); Mean Corpuscular HGB Conc 35.1 GM/DL (32-36); Mean Corpuscular Volume 97.1 FL (87-102); Monocytes % 6.2 % (1.7-12.7); NRBC # 0.63 10*3/uL; Neutrophils % 79.4 % (38.7-73.9); Red Blood Count 4.14 MC/CUMM (3.8-5.5); Red Cell Distribution Width 19.9 % (9.3-17.3); White Blood Count 5.5 T/CUMM (4-12)
[2020-07-29 03:34] LABS: Platelet Count 91 T/CUMM (130-400)
[2020-07-29 03:53] LABS: Albumin 2.5 G/DL (3.4-5.0); Bilirubin,Total 2.4 MG/DL (0.2-1.0); Osmolality,Calculated 298.3 MOS/KG (273-304); Total Protein 6.1 G/DL (6.4-8.3)
[2020-07-29 04:16] LABS: INR 1.8; PT Patient Result 18.5 SECS (9.8-11.9); Partial Thromboplastin Time 37.4 SECS (23.9-33.8)
[2020-07-29] MEDS ORDERED: MAGNESIUM SULF RIDER 2 GM in PREMIX 1 EACH IV PRN (05:12)
[2020-07-29] MEDS ORDERED: MAGNESIUM SULF RIDER 4 GM in PREMIX 1 EACH IV PRN (05:12)
[2020-07-29 05:27] LABS: Band Neutrophils 11 % (0-10); Eosinophils 3 % (0-10); Lymphocytes 14 % (20-55); Metamyelocytes 5 %; Myelocytes 1 %; Nucleated Red Blood Cells 22 (0-5); Segmented Neutrophils 59 % (50-85); Total Cells Counted 100
[2020-07-29 05:28] LABS: Hypochromasia Slight; Macrocytosis 1+; Polychromasia Slight
[2020-07-29 05:29] LABS: Platelet Estimate Decreased
[2020-07-29 05:30] LABS: Atypical Lymphocytes Few
[2020-07-29] MEDS: cefTRIAXone 1,000 MG in SYRINGE 1 EACH IV SCH (05:30)
[2020-07-29] MEDS: AZITHROMYCIN INJ 500 MG in SODIUM CHLORIDE 0.9% 250 ML IV SCH (05:30)
[2020-07-29] MEDS ORDERED: NOREPINEPHRINE 4 MG/4 ML VIAL IV ONE (05:55)
[2020-07-29] MEDS ORDERED: CALCIUM CHLORIDE 1,000 MG/10 ML SYRINGE IV ONE ×4 (06:03→08:06)
[2020-07-29] MEDS ORDERED: SODIUM BICARBONATE 50 MEQ/50 ML VIAL IV ONE ×3 (06:03→06:45)
[2020-07-29] MEDS: NOREPINEPHRINE 8 MG in SODIUM CHLORIDE 0.9% 242 ML IV SCH ×2 (06:20→09:41)
[2020-07-29 06:27] LABS: ABG Base Excess -3.2 MMOL/L (-2.5-2.5); ABG HCO3 21.7 MMOL/L (20-26); ABG PH 7.403 (7.35-7.45); ABG TCO2 17.8 MMOL/L (23-27); Pt O2 Delivery Device Ventilator
[2020-07-29] MEDS ORDERED: ALBUMIN 5% 12.5 GM/250 ML VIAL IV ONE (06:39)
[2020-07-29] MEDS ORDERED: DOBUTamine 500 MG/250 ML PREMIX IV ONE (06:44)
[2020-07-29] MEDS ORDERED: DOBUTamine 500 MG/250 ML PREMIX IV PRN (06:45)
[2020-07-29] MEDS ORDERED: ALBUMIN 5% 12.5 GM in PREMIX 1 EACH IV ONE (07:09)
[2020-07-29] MEDS: PHENYLEPHRINE DRIP 40 MG/250 ML PREMIX IV SCH ×3 (07:18→11:02)
[2020-07-29] MEDS ORDERED: DEXAMETHASONE 4 MG/1 ML VIAL IV SCH (07:30)
[2020-07-29] MEDS ORDERED: EPINEPHrine 1 MG/10 ML SYRINGE ONE (08:06)
[2020-07-29 08:38] LABS: CKMB % 0.6 %
[2020-07-29 08:39] LABS: Troponin I 0.766 NG/ML (0.00-0.045)
[2020-07-29 09:51] VITALS: BP 44/28
[2020-07-29] MEDS: PANTOPRAZOLE INJ 200 MG in SODIUM CHLORIDE 0.9% 250 ML IV SCH (10:27)
[2020-07-29] MEDS: ACETYLCYSTEINE 600 MG CAPSULE PO SCH (10:28)
[2020-07-29] MEDS: DOPamine 800 MG/250 ML PREMIX IV SCH (10:43)
[2020-07-29] MEDS ORDERED: EPINEPHrine 1 MG/ML VIAL ONE (10:47)
[2020-08-01] MEDS ORDERED: INFLUENZA VIRUS VACCINE 0.5 ML SYRINGE IM ONE (09:00)
== END 2020-07-29 12:59 | disposition expired | DRG 314 ==
LOC: N.EDINP 18:04 → N.ED 18:04 → SUATTDRO 20:45 → N.3E 22:26 → N.TELEN 07-27 18:00 → N.ICU 07-28 07:25
PROVIDERS: ADMIT Hospitalist; ATTEND Internal Medicine